=== PATIENT | female | born 1950 | race Caucasian/White ===

== ENCOUNTER 2016-06-05 14:30 | Inpatient (IN) | payer MEDICARE, OTHER ==
--- NOTE | 2016-06-05 14:57 | ER Document Report ---
ED Medical Screen (RME) - General Chief Complaint: Shortness Of Breath Stated Complaint: ABDOMINAL PAIN Time seen by provider: 14:54 Mode of Arrival: Ambulatory Information source: Patient Notes: 65 yo female present sto ed for abdominal pain with no BM for 2 weeks. told her is enama did not relieve the constipations to come to the hospital TRAVEL OUTSIDE OF THE [place] IN LAST 30 DAYS: No - HPI Onset: Other - 2 weeks Onset/Duration: Gradual, Worse Quality of pain: Sharp Pain Level: 4 Associated Symptoms: Abdominal pain, Shortness of breath Exacerbated by: Denies Relieved by: Denies Similar symptoms previously: Yes Recently seen / treated by doctor: Yes - Related Data Smoking: Cigarettes, Other - ppd Frequency of alcohol use: None Drug Abuse: None Allergies/Adverse Reactions: No Known Allergies Allergy (Verified 06/05/16 14:54) Past Medical History - Past Medical History Cardiac Medical History: Reports: Hx Coronary Artery Disease, Hx Heart Attack - 2009 stents placed Denies: Hx Hypertension Pulmonary Medical History: Reports: Hx COPD Denies: Hx Asthma, Hx Bronchitis, Hx Pneumonia Neurological Medical History: Denies: Hx Cerebrovascular Accident, Hx Seizures Musculoskeltal Medical History: Reports Hx Arthritis Past Surgical History: Reports: Hx Hysterectomy - Immunizations Hx Diphtheria, Pertussis, Tetanus Vaccination: Yes - Many years
--- NOTE | 2016-06-05 16:13 | ER Document Report ---
ED GI/ - General Chief Complaint: Abdominal Pain Stated Complaint: ABDOMINAL PAIN Mode of Arrival: Ambulatory Notes: The patient is a 65-year-old female, past medical history COPD, hypertension, presents with 2 weeks of constipation. She has not had a bowel movement since then. She saw her primary care physician and was told to begin MiraLAX and use a Fleet enema. If this did not work, she was instructed to go to the emergency room. She tried a Fleet enema without much success, but was afraid to try the MiraLAX. She is also having increasing shortness of breath over the past few weeks. He does not have home oxygen. She finished a Z-Mark for bronchitis 2 weeks ago. She denies abdominal pain, nausea, vomiting, urinary symptoms, chest pain, fevers or rash. TRAVEL OUTSIDE OF THE [place] IN LAST 30 DAYS: No - Related Data Allergies/Adverse Reactions: No Known Allergies Allergy (Verified 06/05/16 14:54) Past Medical History - General Information source: Patient - Social History Smoking Status: Current Every Day Smoker Chew tobacco use (# tins/day): No Frequency of alcohol use: None Drug Abuse: None Family History: Reviewed & Not Pertinent Patient has suicidal ideation: No Patient has homicidal ideation: No - Past Medical History Cardiac Medical History: Reports: Hx Coronary Artery Disease, Hx Heart Attack - 2009 stents placed Denies: Hx Hypertension Pulmonary Medical History: Reports: Hx COPD Denies: Hx Asthma, Hx Bronchitis, Hx Pneumonia Neurological Medical History: Denies: Hx Cerebrovascular Accident, Hx Seizures Musculoskeltal Medical History: Reports Hx Arthritis Past Surgical History: Reports: Hx Hysterectomy - Immunizations Hx Diphtheria, Pertussis, Tetanus Vaccination: Yes - Many years Review of Systems - Review of Systems Notes: REVIEW OF SYSTEMS: CONSTITUTIONAL: Denies fever, chills, or sweats. Denies recent illness. EENT: Denies eye, ear, throat, or mouth pain or symptoms. Denies nasal or sinus congestion. CARDIOVASCULAR: Denies chest pain, syncope. RESPIRATORY: Denies cough, cold, or chest congestion. Mild SOB. No wheezing. GASTROINTESTINAL: Denies abdominal pain. Denies nausea, vomiting, or diarrhea. +constipation. GENITOURINARY: Denies difficulty urinating, painful urination, burning, frequency, or blood in urine. MUSCULOSKELETAL: Denies neck or back pain or joint pain or swelling. SKIN: Denies rash or skin lesions. HEMATOLOGIC: Denies easy bruising or bleeding. LYMPHATIC: Denies swollen, enlarged glands. NEUROLOGICAL: Denies altered mental status or loss of consciousness. Denies headache. Denies weakness or paralysis or loss of use of either side. Denies problems with gait or speech. Denies sensory or motor loss. PSYCHIATRIC: Denies anxiety or stress or depression. ALL OTHER SYSTEMS REVIEWED AND NEGATIVE. Physical Exam - Vital signs Vitals: Temp Pulse Resp BP Pulse Ox 98.4 F 107 H 32 H 138/67 H 82 L 06/05/16 14:49 06/05/16 14:49 06/05/16 14:49 06/05/16 14:49 06/05/16 14:49 - Notes Notes: PHYSICAL EXAMINATION: GENERAL: Well-appearing, well-nourished and in no acute distress. HEAD: Atraumatic, normocephalic. EYES: Pupils equal round and reactive to light, extraocular movements intact, sclera anicteric, conjunctiva are normal. ENT: nares patent, oropharynx clear without exudates. Moist mucous membranes. NECK: Normal range of motion, supple without lymphadenopathy LUNGS: Breath sounds clear to auscultation bilaterally and equal. Mild tachypnea. HEART: Regular rate and rhythm without murmurs ABDOMEN: Soft, nontender, decreased bowel sounds. No guarding, no rebound. No masses appreciated. Hard stool in rectal vault. EXTREMITIES: Normal range of motion, no pitting or edema. No cyanosis. NEUROLOGICAL: Cranial nerves grossly intact. Normal speech, normal gait. Normal sensory, motor, and reflex exams. PSYCH: Normal mood, normal affect. SKIN: Warm, Dry, normal turgor, no rashes or lesions noted. Course - Re-evaluation Re-evalutation: Patient hypoxic on arrival. Very mild wheezing. She does not wear home oxygen. Oxygen increased to 93% on 3 L nasal cannula. No respiratory distress. Chest x -ray shows interstitial edema versus atypical pneumonia. Will treat with Lasix and CAP Abx. Blood cultures sent. Patient's abdominal exam is nontender. Does not appear to be peritoneal at this time. KUB does not show any signs of obstruction. Disimpaction attempted with a small amount of hard stool obtained. Will attempt Lactulose and soapsuds enema. After soapsuds enema and lactulose, patient had moderate bowel movement. Will continue bowel regimen. 06/05/16 20:[address] Kramer (Hospitalist) and has accepted patient to Tele as Obs. Repeat vitals is HR 97, Pulse Ox 94% on 3L, RR 23, BP 145/92 - Vital Signs Vital signs: Temp Pulse Resp BP Pulse Ox 98.4 F 95 32 H 142/67 H 88 L 06/05/16 14:49 06/05/16 18:24 06/05/16 14:49 06/05/16 18:24 06/05/16 18:24 - Laboratory Result Diagrams: 06/05/16 19:05 06/05/16 19:05 Laboratory results interpreted by me: 06/05/16 19:05 Potassium 3.5 L Carbon Dioxide 33 H - Diagnostic Test Radiology reviewed: Image reviewed, Reports reviewed Radiology results interpreted by me: KUB shows nonspecific bowel gas pattern. Chest x-ray shows atypical pneumonia versus interstitial edema. Discharge - Discharge Clinical Impression: Hypoxia, Atypical pneumonia Constipation Qualifiers: Constipation type: unspecified constipation type Qualified Code(s): K59.00 - Constipation, unspecified Interstitial edema Qualifiers: Edema type: generalized Qualified Code(s): R60.1 - Generalized edema Condition: Fair Disposition: ADMITTED OBSERVATION Unit Admitted: Telemetry Referrals: CLAUDIA PAYTON MD [Primary Care Provider] - Follow up as needed
[2016-06-05] MEDS ORDERED: LACTULOSE SYRUP 20 GM/30 ML UDCUP PO ONE (18:15)
[2016-06-05] MEDS ORDERED: IPRATROPIUM/ALBUTEROL 0.5-2.5 MG/3 ML AMPUL NEB ONE (18:33)
[2016-06-05] MEDS ORDERED: AZITHROMYCIN INJ 500 MG VIAL IV ONE ×2 (19:14→22:58)
[2016-06-05] MEDS ORDERED: CEFTRIAXONE INJ 500 MG VIAL IV ONE (19:14)
[2016-06-05] MEDS ORDERED: FUROSEMIDE INJ/PF 40 MG/4 ML SDV IV ONE (19:15)
[2016-06-05 19:30] LABS: ABSOLUTE EOSINOPHILS # (AUTO) 0.1 10^3/uL (0.0-0.6); ABSOLUTE LYMPHOCYTES (AUTO) 1.4 10^3/uL (0.5-4.7); ABSOLUTE NEUT (AUTO) 7.3 10^3/uL (1.7-8.2); BASOPHILS % (AUTO) 0.2 % (0-2); EOSINOPHILS % (AUTO) 1.2 % (0-6); HEMATOCRIT 41.5 % (36.0-47.0); HEMOGLOBIN 13.5 g/dL (12.0-15.5); LYMPHOCYTES % (AUTO) 14.2 % (13-45); MEAN CORPUSCULAR HGB CONC 32.5 g/dL (32.0-36.0); MEAN CORPUSCULAR VOLUME 95 fl (80-97); MONOCYTES % (AUTO) 9.9 % (3-13); RED BLOOD COUNT 4.35 10^6/uL (3.72-5.28); RED CELL DISTRIBUTION WIDTH 13.8 % (11.5-14.0); SEGMENTED NEUTROPHILS % (AUTO) 74.5 % (42-78); WHITE BLOOD COUNT 9.8 10^3/uL (4.0-10.5)
[2016-06-05 19:48] LABS: ANION GAP 12 (5-19); BLOOD UREA NITROGEN 12 mg/dL (7-20); CALCIUM 8.6 mg/dL (8.4-10.2); CARBON DIOXIDE 33 mmol/L (22-30); CHLORIDE 99 mmol/L (98-107); CREATININE RESULT 0.53 mg/dL (0.52-1.25); GLUCOSE 88 mg/dL (75-110); POTASSIUM 3.5 mmol/L (3.6-5.0); SODIUM 143.7 mmol/L (137-145)
[2016-06-05] MEDS ORDERED: ONDANSETRON HCL INJ/PF 4 MG/2 ML SDV IV PRN (20:21)
[2016-06-05] MEDS ORDERED: ACETAMINOPHEN 325 MG TABLET PO PRN (20:21)
[2016-06-05] MEDS ORDERED: NORMAL SALINE 1000 ML 1,000 ML IV ONE (20:26)
[2016-06-05] MEDS ORDERED: POTASSI CL 20 MEQ/50 ML RIDER 50 ML IV SCH (20:30)
[2016-06-05] MEDS ORDERED: DILTIAZEM HCL 60 MG TABLET PO ONE (21:00)
[2016-06-05] MEDS ORDERED: MAGNESIUM OXIDE 400 MG TABLET PO ONE (21:00)
[2016-06-05] MEDS: HEPARIN SOD (PORCINE) 5,000 UNIT/ML 1 ML SYRINGE SUBCUT SCH (23:12)
[2016-06-06] MEDS ORDERED: POTASSI CL 20 MEQ/50 ML RIDER 20 MEQ/50 ML RTUPB IV ONE (01:30)
--- NOTE | 2016-06-06 04:39 | PDOC H&P ---
History of Present Illness Admission Date/PCP: 06/05/16 20:21 CLAUDIA PAYTON MD Patient complains of: Abdominal pain and distention constipation 2 weeks History of Present Illness: ROBBY GEE is a 65 year old female with a past medical history of COPD tobacco dependence obesity chronic pain opiate dependence and hypertension. In her usual state of health until approximately week ago having exceptional abdominal pain without bowel movement developing distention nausea without vomiting prompts her to seek evaluation emergency room where she's found to have exceptional constipation and shortness of breath she receives several enemas without improvement her oxygen saturations are 87% on room air and is referred to the hospitalist for admission. She admits chronic use of Percocet without bowel regiment. Otherwise no new medications denying chest pain palpitations or diaphoresis. Past Medical History Cardiac Medical History: Reports: Coronary Artery Disease, Myocardial Infarction - 2009 stents placed Denies: Hypertension Pulmonary Medical History: Reports: Chronic Obstructive Pulmonary Disease (COPD) Denies: Asthma, Bronchitis, Pneumonia Neurological Medical History: Denies: Seizures Musculoskeltal Medical History: Reports: Arthritis Hematology: Denies: Anemia Past Surgical History Past Surgical History: Reports: Hysterectomy Social History Information Source: Parent Lives with: Family Smoking Status: Current Every Day Smoker Frequency of Alcohol Use: None Hx Recreational Drug Use: No Drugs: None - Advance Directive Resuscitation Status: Full Code Family History Family History: COPD Parental Family History Reviewed: Yes Children Family History Reviewed: Yes Sibling(s) Family History Reviewed.: Yes Medication/Allergy Home Medications: Albuterol Sulfate [Proair HFA] 1 puff IH DAILY 06/05/16 Esomeprazole Magnesium 1 cap PO DAILY 06/05/16 Guaifenesin [Tussin] 1 tab PO PRN PRN 06/05/16 Methimazole 1 tab PO DAILY 06/05/16 Nitrofurantoin Monohyd/M-Cryst [Nitrofurantoin [place]-Mcr 100 mg] 1 cap PO BID 11/14 Tiotropium [place] [Spiriva Handihaler 18 mcg/dose (30 Dose)] 1 puff IH DAILY Trazodone HCl 1 tab PO DAILY PRN 06/05/16 Allergies/Adverse Reactions: No Known Allergies Allergy (Verified 06/05/16 14:54) Review of Systems Constitutional: PRESENT: fatigue, weakness, weight gain. ABSENT: anorexia, chills Eyes: ABSENT: visual disturbances Ears: ABSENT: hearing changes Cardiovascular: ABSENT: chest pain, dyspnea on exertion, edema, orthropnea, palpitations Respiratory: PRESENT: dyspnea. ABSENT: cough, hemoptysis, sputum Gastrointestinal: PRESENT: abdominal pain, bloating, constipation, nausea. ABSENT: diarrhea, dysphagia, heartburn, hematemesis, hematochezia Genitourinary: ABSENT: dysuria, hematuria Musculoskeletal: ABSENT: joint swelling Integumentary: ABSENT: rash, wounds Neurological: ABSENT: abnormal gait, abnormal speech, confusion, dizziness, focal weakness, syncope Psychiatric: ABSENT: anxiety, depression, homidical ideation, suicidal ideation Endocrine: ABSENT: cold intolerance, heat intolerance, polydipsia, polyuria Hematologic/Lymphatic: ABSENT: easy bleeding, easy bruising Physical Exam Vital Signs: Temp Pulse Resp BP Pulse Ox 98.3 F 92 24 H 107/77 95 06/06/16 00:30 06/06/16 02:00 06/06/16 00:30 06/06/16 00:30 06/06/16 00:30 Intake & Output 06/04/16 06/05/16 06/06/16 11:59 11:59 11:59 Weight 91 kg General appearance: PRESENT: cooperative, mild distress, well-developed, well- nourished Head exam: PRESENT: atraumatic, normocephalic Eye exam: PRESENT: conjunctiva pink, EOMI, PERRLA. ABSENT: scleral icterus Ear exam: PRESENT: normal external ear exam Mouth exam: PRESENT: moist, tongue midline Neck exam: ABSENT: carotid bruit, JVD, lymphadenopathy, thyromegaly Respiratory exam: PRESENT: accessory muscle use, prolonged expiratory phas, symmetrical, tachypnea. ABSENT: rales, rhonchi, wheezes Cardiovascular exam: PRESENT: RRR. ABSENT: diastolic murmur, rubs, systolic murmur Pulses: PRESENT: normal dorsalis pedis pul Vascular exam: PRESENT: normal capillary refill GI/Abdominal exam: PRESENT: diminished bowel sounds, distended, firm, hypoactive bowel sounds, soft. ABSENT: guarding, mass, organolmegaly, rebound, tenderness Rectal exam: PRESENT: deferred Extremities exam: PRESENT: full ROM. ABSENT: calf tenderness, clubbing, pedal edema Neurological exam: PRESENT: alert, awake, oriented to person, oriented to place , oriented to time, oriented to situation, CN II-XII grossly intact. ABSENT: motor sensory deficit Psychiatric exam: PRESENT: appropriate affect, normal mood. ABSENT: homicidal ideation, suicidal ideation Skin exam: PRESENT: dry, intact, warm. ABSENT: cyanosis, rash Results Impressions: KUB X-Ray 06/05/16 17:43 IMPRESSION: NON-SPECIFIC BOWEL GAS PATTERN. Chest X-Ray 06/05/16 18:25 IMPRESSION: Peribronchial cuffing and interstitial changes. Trace bilateral effusions. Differential includes atypical infectious process versus early interstitial edema. Assessment & Plan - Diagnosis (1) COPD exacerbation Is this a current diagnosis for this admission?: YesPlan: Exacerbation likely secondary to exceptional constipation she receives incentive spirometry symptomatic management repeat labs consider repeat imaging (2) Tobacco abuse Is this a current diagnosis for this admission?: YesPlan: Tobacco Dependence patient received tobacco cessation counseling and offered nicotine replacement options (3) Chronic pain Is this a current diagnosis for this admission?: YesPlan: Opiate dependence without bowel regiment she is placed on Colace (4) Constipation Qualifiers: Constipation type: unspecified constipation type Qualified Code(s): K59.00 - Constipation, unspecified Is this a current diagnosis for this admission?: YesPlan: Unresponsive to medical enema she is placed on lactulose enema and manual disimpaction - Time Time Spent: 30 to 50 Minutes
[2016-06-06] MEDS ORDERED: LACTULOSE SYRUP 20 GM/30 ML UDCUP PR ONE (05:15)
[2016-06-06 05:41] LABS: ABSOLUTE EOSINOPHILS # (AUTO) 0.1 10^3/uL (0.0-0.6); ABSOLUTE LYMPHOCYTES (AUTO) 1.3 10^3/uL (0.5-4.7); ABSOLUTE MONOCYTES (AUTO) 0.9 10^3/uL (0.1-1.4); ABSOLUTE NEUT (AUTO) 6.2 10^3/uL (1.7-8.2); BASOPHILS % (AUTO) 0.4 % (0-2); EOSINOPHILS % (AUTO) 1.2 % (0-6); HEMATOCRIT 41.4 % (36.0-47.0); HEMOGLOBIN 13.4 g/dL (12.0-15.5); HGB HCT DIFFERENCE -1.2; LYMPHOCYTES % (AUTO) 14.8 % (13-45); MEAN CORPUSCULAR HEMOGLOBIN 30.7 pg (27.0-33.4); MEAN CORPUSCULAR HGB CONC 32.3 g/dL (32.0-36.0); MEAN CORPUSCULAR VOLUME 95 fl (80-97); MONOCYTES % (AUTO) 10.8 % (3-13); RED BLOOD COUNT 4.35 10^6/uL (3.72-5.28); RED CELL DISTRIBUTION WIDTH 13.9 % (11.5-14.0); SEGMENTED NEUTROPHILS % (AUTO) 72.8 % (42-78); WHITE BLOOD COUNT 8.5 10^3/uL (4.0-10.5)
[2016-06-06 05:54] LABS: ANION GAP 9 (5-19); BLOOD UREA NITROGEN 9 mg/dL (7-20); CALCIUM 8.3 mg/dL (8.4-10.2); CARBON DIOXIDE 35 mmol/L (22-30); CHLORIDE 99 mmol/L (98-107); CREATININE RESULT 0.47 mg/dL (0.52-1.25); GLUCOSE 93 mg/dL (75-110); POTASSIUM 3.6 mmol/L (3.6-5.0); SODIUM 142.6 mmol/L (137-145)
[2016-06-06] MEDS ORDERED: LACTULOSE SYRUP 20 GM/30 ML UDCUP ONE (06:33)
[2016-06-06] MEDS: HEPARIN SOD (PORCINE) 5,000 UNIT/ML 1 ML SYRINGE SUBCUT SCH ×3 (06:34→21:19)
[2016-06-06] MEDS: POTASSI CL 20 MEQ/50 ML RIDER 50 ML IV SCH ×2 (06:35→09:21)
[2016-06-06] MEDS: IPRATROPIUM/ALBUTEROL 0.5-2.5 MG/3 ML AMPUL NEB SCH ×3 (07:28→20:08)
[2016-06-06] MEDS: DOCUSATE SODIUM 100 MG CAPSULE PO SCH ×2 (09:20→17:12)
[2016-06-06] MEDS ORDERED: TRAZODONE HCL 50 MG TABLET PO PRN (13:58)
[2016-06-06] MEDS ORDERED: GUAIFENESIN PO PRN (13:58)
--- NOTE | 2016-06-06 14:17 | PDOC PROGRESS REPORT ---
Subjective Progress Note for:: 06/06/16 Subjective:: Patient is seen on morning rounds. She is resting quietly in bed. She awakens to verbal stimuli. She has a congested cough. She denies dyspnea or significant shortness of breath. She denies dizziness, headache or fevers. She denies nausea , vomiting or diarrhea. She states her bowels did move after last enema Physical Exam Vital Signs: Temp Pulse Resp BP Pulse Ox 98.0 F 95 20 125/48 L 99 06/06/16 11:49 06/06/16 11:49 06/06/16 11:49 06/06/16 11:49 06/06/16 11:49 Intake & Output 06/05/16 06/06/16 06/07/16 06:59 06:59 06:59 Intake Total 579 Balance 579 Weight 91 kg General appearance: PRESENT: no acute distress, morbidly obese, well-developed, well-nourished Head exam: PRESENT: atraumatic, normocephalic Eye exam: PRESENT: conjunctiva pink, EOMI, PERRLA. ABSENT: scleral icterus Ear exam: PRESENT: normal external ear exam Neck exam: ABSENT: carotid bruit, JVD, lymphadenopathy, thyromegaly Respiratory exam: PRESENT: clear to auscultation andrei. ABSENT: rales, rhonchi, wheezes Cardiovascular exam: PRESENT: RRR. ABSENT: diastolic murmur, rubs, systolic murmur Pulses: PRESENT: normal dorsalis pedis pul Vascular exam: PRESENT: normal capillary refill GI/Abdominal exam: PRESENT: normal bowel sounds, soft. ABSENT: distended, guarding, mass, organolmegaly, rebound, tenderness Rectal exam: PRESENT: deferred Extremities exam: PRESENT: full ROM. ABSENT: calf tenderness, clubbing, pedal edema Neurological exam: PRESENT: alert, awake, oriented to person, oriented to place , oriented to time, oriented to situation, CN II-XII grossly intact. ABSENT: motor sensory deficit Psychiatric exam: PRESENT: agitated Skin exam: PRESENT: dry, intact, warm. ABSENT: cyanosis, rash Results Laboratory Results: 06/06/16 05:27 06/06/16 05:27 06/06/16 06/06/16 06/06/16 05:27 05:27 05:27 WBC 8.5 RBC 4.35 Hgb 13.4 Hct 41.4 MCV 95 MCH 30.7 MCHC 32.3 RDW 13.9 Plt Count 193 Seg Neutrophils % 72.8 Lymphocytes % 14.8 Monocytes % 10.8 Eosinophils % 1.2 Basophils % 0.4 Absolute Neutrophils 6.2 Absolute Lymphocytes 1.3 Absolute Monocytes 0.9 Absolute Eosinophils 0.1 Absolute Basophils 0.0 Sodium 142.6 Potassium 3.6 Chloride 99 Carbon Dioxide 35 H Anion Gap 9 BUN 9 Creatinine 0.47 L Est GFR ( Amer) > 60 Est GFR (Non-Af Amer) > 60 Glucose 93 Calcium 8.3 L Magnesium 1.8 Impressions: KUB X-Ray 06/05/16 17:43 IMPRESSION: NON-SPECIFIC BOWEL GAS PATTERN. Chest X-Ray 06/05/16 18:25 IMPRESSION: Peribronchial cuffing and interstitial changes. Trace bilateral effusions. Differential includes atypical infectious process versus early interstitial edema. Assessment & Plan - Diagnosis (1) Atypical pneumonia Is this a current diagnosis for this admission?: YesPlan: Continue antibiotics as, cultures pending (2) COPD exacerbation Is this a current diagnosis for this admission?: YesPlan: Steroids, antibiotics and nebulizers (3) Constipation Qualifiers: Constipation type: unspecified constipation type Qualified Code(s): K59.00 - Constipation, unspecified Is this a current diagnosis for this admission?: YesPlan: Enemas, and laxatives (5) Tobacco abuse Is this a current diagnosis for this admission?: YesPlan: Room air spo2 in the ED was 84%, on 3l/min n/c (6) Morbid obesity Qualifiers: Obesity type: due to excess calories Qualified Code(s): E66.01 - Morbid (severe) obesity due to excess calories Is this a current diagnosis for this admission?: YesPlan: Counseled - Time Time Spent with patient: 25-34 minutes Critical Time spent with patient: 15-24 minutes Smoking Cessation Education: 3 to 10 minutes Medications reviewed and adjusted accordingly: Yes Anticipated discharge: Home
[2016-06-06] MEDS: METHYLPREDNISOLONE INJ 125 MG/2 ML SDV IV SCH ×2 (14:23→21:19)
[2016-06-07] MEDS: HEPARIN SOD (PORCINE) 5,000 UNIT/ML 1 ML SYRINGE SUBCUT SCH ×3 (05:15→21:48)
[2016-06-07] MEDS: METHYLPREDNISOLONE INJ 125 MG/2 ML SDV IV SCH ×3 (05:15→21:48)
[2016-06-07] MEDS: IPRATROPIUM/ALBUTEROL 0.5-2.5 MG/3 ML AMPUL NEB SCH ×3 (08:24→19:46)
[2016-06-07] MEDS: METHIMAZOLE 5 MG TABLET PO SCH (09:30)
[2016-06-07] MEDS: DOCUSATE SODIUM 100 MG CAPSULE PO SCH ×2 (09:30→20:07)
[2016-06-07] MEDS: TIOTROPIUM BROMIDE DPI 5 CAP/KIT (18 MCG/CAP) IH SCH (09:30)
[2016-06-07] MEDS ORDERED: METHIMAZOLE 5 MG TABLET PO SCH (10:00)
[2016-06-07] MEDS ORDERED: TIOTROPIUM BROMIDE DPI 5 CAP/KIT (18 MCG/CAP) IH SCH (10:00)
[2016-06-07] MEDS ORDERED: PEG 3350/NA SULF,BICARB,CL/KCL 4000 ML PO ONE (13:00)
--- NOTE | 2016-06-07 16:53 | PDOC PROGRESS REPORT ---
Subjective Progress Note for:: 06/07/16 Subjective:: Patient is seen on morning rounds. She is resting quietly in bed. She awakens to verbal stimuli. She has a congested cough. She denies dyspnea or significant shortness of breath. She denies dizziness, headache or fevers. She denies nausea , vomiting or diarrhea. She states her bowels did move after last enema, but only a small amount. She still feels constipated Physical Exam Vital Signs: Temp Pulse Resp BP Pulse Ox 97.5 F 93 20 126/49 H 90 L 06/07/16 07:48 06/07/16 08:26 06/07/16 08:26 06/07/16 07:48 06/07/16 08:26 Intake & Output 06/06/16 06/07/16 06/08/16 06:59 06:59 06:59 Intake Total 1561 Balance 1561 Weight 89.9 kg General appearance: PRESENT: no acute distress, morbidly obese, well-developed, well-nourished Head exam: PRESENT: atraumatic, normocephalic Eye exam: PRESENT: conjunctiva pink, EOMI, PERRLA. ABSENT: scleral icterus Ear exam: PRESENT: normal external ear exam Mouth exam: PRESENT: moist, tongue midline Neck exam: ABSENT: carotid bruit, JVD, lymphadenopathy, thyromegaly Respiratory exam: PRESENT: decreased breath sounds, symmetrical, unlabored, wheezes Cardiovascular exam: PRESENT: RRR. ABSENT: diastolic murmur, rubs, systolic murmur Pulses: PRESENT: normal dorsalis pedis pul Vascular exam: PRESENT: normal capillary refill GI/Abdominal exam: PRESENT: hypoactive bowel sounds, normal bowel sounds, soft. ABSENT: distended, guarding, mass, organolmegaly, rebound, tenderness Rectal exam: PRESENT: deferred Extremities exam: PRESENT: full ROM. ABSENT: calf tenderness, clubbing, pedal edema Neurological exam: PRESENT: alert, awake, oriented to person, oriented to place , oriented to time, oriented to situation, CN II-XII grossly intact. ABSENT: motor sensory deficit Psychiatric exam: PRESENT: appropriate affect, normal mood. ABSENT: homicidal ideation, suicidal ideation Skin exam: PRESENT: dry, intact, warm. ABSENT: cyanosis, rash Results Impressions: KUB X-Ray 06/05/16 17:43 IMPRESSION: NON-SPECIFIC BOWEL GAS PATTERN. Chest X-Ray 06/05/16 18:25 IMPRESSION: Peribronchial cuffing and interstitial changes. Trace bilateral effusions. Differential includes atypical infectious process versus early interstitial edema. Assessment & Plan - Diagnosis (1) Atypical pneumonia Is this a current diagnosis for this admission?: YesPlan: Continue antibiotics as, cultures pending (2) COPD exacerbation Is this a current diagnosis for this admission?: YesPlan: Steroids, antibiotics and nebulizers (3) Constipation Qualifiers: Constipation type: unspecified constipation type Qualified Code(s): K59.00 - Constipation, unspecified Is this a current diagnosis for this admission?: YesPlan: Enemas, and laxatives (4) Hypoxia Is this a current diagnosis for this admission?: YesPlan: Continue oxygen and nebulizers. Wean steroids (5) Tobacco abuse Is this a current diagnosis for this admission?: YesPlan: Room air spo2 in the ED was 84%, on 3l/min n/c (6) Morbid obesity Qualifiers: Obesity type: due to excess calories Qualified Code(s): E66.01 - Morbid (severe) obesity due to excess calories Is this a current diagnosis for this admission?: YesPlan: Counseled - Time Time Spent with patient: 25-34 minutes Medications reviewed and adjusted accordingly: Yes Anticipated discharge: Home
[2016-06-08 06:14] LABS: ANION GAP 9 (5-19); BLOOD UREA NITROGEN 13 mg/dL (7-20); CALCIUM 8.6 mg/dL (8.4-10.2); CARBON DIOXIDE 38 mmol/L (22-30); CHLORIDE 97 mmol/L (98-107); CREATININE RESULT 0.44 mg/dL (0.52-1.25); GLUCOSE 137 mg/dL (75-110); POTASSIUM 4.2 mmol/L (3.6-5.0); SODIUM 143.5 mmol/L (137-145)
[2016-06-08] MEDS: METHYLPREDNISOLONE INJ 125 MG/2 ML SDV IV SCH (06:14)
[2016-06-08] MEDS: HEPARIN SOD (PORCINE) 5,000 UNIT/ML 1 ML SYRINGE SUBCUT SCH ×2 (06:14→15:37)
[2016-06-08] MEDS: IPRATROPIUM/ALBUTEROL 0.5-2.5 MG/3 ML AMPUL NEB SCH ×2 (08:07→13:14)
[2016-06-08] MEDS ORDERED: POLYETHYLENE GLYCOL 3350 POWDER 17 GM/1 PACKET PO SCH (10:00)
[2016-06-08] MEDS: METHIMAZOLE 5 MG TABLET PO SCH (10:08)
[2016-06-08] MEDS ORDERED: GUAIFENESIN SYRP 200 MG/10 ML UDC PO PRN (11:31)
[2016-06-08] MEDS: TIOTROPIUM BROMIDE DPI 5 CAP/KIT (18 MCG/CAP) IH SCH (13:06)
[2016-06-08] MEDS: DOCUSATE SODIUM 100 MG CAPSULE PO SCH (13:09)
--- NOTE | 2016-06-08 15:27 | PDOC DISCHARGE SUMMARY ---
General - Admit/Disc Date/PCP Admission Date/Primary Care Provider: 06/06/16 13:57 CLAUDIA PAYTON MD Discharge Date: 06/08/16 - Discharge Diagnosis (1) Atypical pneumonia Is this a current diagnosis for this admission?: YesSummary: Continue levaquin for 5 more days with tapering prednisone (2) COPD exacerbation Is this a current diagnosis for this admission?: YesSummary: Continue spiriva and nebulizer treatments (3) Constipation Is this a current diagnosis for this admission?: YesSummary: Patient had enemas, mag citrate and Golytely. Recommended Miralax and Colace daily (4) Hypoxia Is this a current diagnosis for this admission?: YesSummary: Improved counseled on need to quit smoking (5) Tobacco abuse Is this a current diagnosis for this admission?: YesSummary: Counseled is attempting to quit (6) Morbid obesity Is this a current diagnosis for this admission?: YesSummary: Counseled - Additional Information Resuscitation Status: Full Code Discharge Diet: Regular Discharge Activity: Activity As Tolerated, Balance Activity w/Rest Home Medications: Albuterol Sulfate [Proair HFA] 1 puff IH DAILY 06/05/16 Esomeprazole Magnesium 1 cap PO DAILY 06/05/16 Guaifenesin [Tussin] 1 tab PO PRN PRN 06/05/16 Methimazole 1 tab PO DAILY 06/05/16 Tiotropium [place] [Spiriva Handihaler 18 mcg/dose (30 Dose)] 1 puff IH DAILY Trazodone HCl 1 tab PO DAILY PRN 06/05/16 Acetaminophen [Tylenol 325 mg Tablet] 650 mg PO Q4HP PRN tablet 06/08/16 Ciprofloxacin HCl [Ciloxan 0.3% Oph Soln 2.5 ml] 1 drop OU Q6 #5 ml 06/08/16 Guaifenesin [Robitussin Syrup 200 mg/10 ml Ud Cup] 400 mg PO Q4HP PRN udc 06/08 Levofloxacin [Levaquin 750 mg Tablet] 750 mg PO DAILY #5 tablet 06/08/16 Polyethylene Glycol 3350 [Miralax Powder 17 gm/Packet] 17 gm PO DAILY powd.pack 06/08/16 Prednisone [Deltasone 20 mg Tablet] 20 mg PO ASDIR PRN #10 tablet 06/08/16 History of Present Illness Patient complains of: Shortness of breath, cough, abdominal pain and constipation History of Present Illness: ROBBY GEE is a 65 year old female presented on 06/05/2016 with above complaints. She states she has tried several otc laxatives with very little results and has been constipated for 2 weeks. She has had an upper respiratory infection for the last 2 days. She does have a history of COPD and tobacco abuse. She continues to smoke. Her room air SPO2 was 82% on admission. She was placed on oxygen and given broad spectrum antibiotics and referred to the hospitalist service. Hospital Course Hospital Course: She was admitted to telemetry on the hospitalist service. KUB xrays showed no obstruction. She was started on IV broad spectrum antibiotics, IV steroids and nebulizer treatments. Her pulmonary status improved. She developed some redness today in her right and purulent discharge. She was started on antibacterial drops. She had large bowel movement after Golytely Physical Exam Vital Signs: Temp Pulse Resp BP Pulse Ox 98.0 F 107 H 16 118/58 L 91 L 06/08/16 12:20 06/08/16 14:00 06/08/16 13:13 06/08/16 12:20 06/08/16 13:13 Intake & Output 06/07/16 06/08/16 06/09/16 06:59 06:59 06:59 Intake Total 1561 1693 Balance 1561 1693 Weight 89.9 kg 88.3 kg General appearance: PRESENT: no acute distress, obese, well-developed, well- nourished Head exam: PRESENT: atraumatic, normocephalic Eye exam: PRESENT: conjunctiva pink, EOMI, PERRLA. ABSENT: scleral icterus Ear exam: PRESENT: normal external ear exam Mouth exam: PRESENT: moist, tongue midline Neck exam: ABSENT: carotid bruit, JVD, lymphadenopathy, thyromegaly Respiratory exam: PRESENT: clear to auscultation andrei, decreased breath sounds, symmetrical, unlabored Cardiovascular exam: PRESENT: RRR. ABSENT: diastolic murmur, rubs, systolic murmur Pulses: PRESENT: normal dorsalis pedis pul Vascular exam: PRESENT: normal capillary refill GI/Abdominal exam: PRESENT: normal bowel sounds, soft Rectal exam: PRESENT: deferred Extremities exam: PRESENT: full ROM. ABSENT: calf tenderness, clubbing, pedal edema Neurological exam: PRESENT: alert, awake, oriented to person, oriented to place , oriented to time, oriented to situation, CN II-XII grossly intact. ABSENT: motor sensory deficit Psychiatric exam: PRESENT: appropriate affect, normal mood. ABSENT: homicidal ideation, suicidal ideation Skin exam: PRESENT: dry, intact, warm. ABSENT: cyanosis, rash Results Laboratory Results: 06/08/16 05:46 06/08/16 05:46 Sodium 143.5 Potassium 4.2 Chloride 97 L Carbon Dioxide 38 H Anion Gap 9 BUN 13 Creatinine 0.44 L Est GFR ( Amer) > 60 Est GFR (Non-Af Amer) > 60 Glucose 137 H Calcium 8.6 Impressions: Chest X-Ray 06/05/16 18:25 IMPRESSION: Peribronchial cuffing and interstitial changes. Trace bilateral effusions. Differential includes atypical infectious process versus early interstitial edema. KUB X-Ray 06/08/16 00:00 IMPRESSION: NO RADIOGRAPHIC EVIDENCE FOR ACUTE ABDOMINAL DISEASE. Qualifiers PATEINT BEING DISCHARGED WITH ANY OF THE FOLLOWING DIAGNOSIS?: No Plan Discharge Plan: Home with family. Follow up with primary care provider in one week
[2016-06-08 16:29] VITALS: BP 121/62
[2016-06-08] MEDS ORDERED: PREDNISONE 20 MG TABLET PO SCH (18:00)
[2016-06-08] MEDS ORDERED: CIPROFLOXACIN HCL 0.3% OPH SOLN 2.5 ML OU SCH (18:00)
[2016-06-09] MEDS ORDERED: LEVOFLOXACIN 750 MG TABLET PO SCH (10:00)
== END 2016-06-08 17:37 | disposition home or self-care (01) | DRG 190 ==
LOC: ER 14:30 → EH 20:21 → UNDOADMOB 20:31 → EH 20:31 → 4S 06-06 00:24 → OBSVTOIN 06-06 13:57
PROVIDERS: ADMIT Internal Medicine; ATTEND Internal Medicine
DX: J44.0 Chronic obstructive pulmonary disease with (acute) lower respiratory infection (principal); J18.1 Lobar pneumonia, unspecified organism; F11.20 Opioid dependence, uncomplicated; J44.1 Chronic obstructive pulmonary disease with (acute) exacerbation; K59.00 Constipation, unspecified; I25.10 Atherosclerotic heart disease of native coronary artery without angina pectoris; R09.02 Hypoxemia; I10 Essential (primary) hypertension; M19.90 Unspecified osteoarthritis, unspecified site; F17.210 Nicotine dependence, cigarettes, uncomplicated; E66.01 Morbid (severe) obesity due to excess calories; Z68.39 Body mass index [BMI] 39.0-39.9, adult; I25.2 Old myocardial infarction; Z95.5 Presence of coronary angioplasty implant and graft
CPT/HCPCS: 36415; 71020; 74000; 80048; 83605; 83735; 83880; 85025; 87040; 94640; 99285; G0378; J0456; J0696; J1644; J1940; J2930; J3480; J3490; J7030; J7620

== ENCOUNTER 2016-07-07 16:08 | Emergency (ER) | payer MEDICARE, OTHER ==
--- NOTE | 2016-07-07 16:25 | ER Document Report ---
ED Medical Screen (RME) - General Stated Complaint: LEG PAIN Mode of Arrival: Ambulatory Information source: Patient Notes: Patient had an out patient ultrasound performed which demonstrated a DVT in the right lower extremity. Patient was advised to come to the emergency department for further evaluation. Patient denies any chest pain or shortness of breath. Patient reports right lower extremity swelling for the past week. Patient denies any previous history of DVT or PE in the past. Patient tachycardic and oxygen saturation is 88-89% on room air hx: COPD, [place] 2 I have greeted and performed a rapid initial assessment of this patient. A comprehensive ED assessment and evaluation of the patient, analysis of test results and completion of the medical decision making process will be conducted by additional ED providers. TRAVEL OUTSIDE OF THE [place] IN LAST 30 DAYS: No - Related Data Allergies/Adverse Reactions: No Known Allergies Allergy (Verified 06/05/16 14:54) Past Medical History - Past Medical History Cardiac Medical History: Reports: Hx Coronary Artery Disease, Hx Heart Attack - 2009 stents placed Denies: Hx Hypertension Pulmonary Medical History: Reports: Hx COPD Denies: Hx Asthma, Hx Bronchitis, Hx Pneumonia Neurological Medical History: Denies: Hx Cerebrovascular Accident, Hx Seizures Musculoskeltal Medical History: Reports Hx Arthritis Past Surgical History: Reports: Hx Hysterectomy - Immunizations Hx Diphtheria, Pertussis, Tetanus Vaccination: Yes - Many years Physical Exam - Cardiovascular Rhythm: Tachycardia Heart sounds: S1 appreciated, S2 appreciated
--- NOTE | 2016-07-07 18:40 | ER Document Report ---
ED Extremity Problem, Lower - General Mode of Arrival: Ambulatory Information source: Patient TRAVEL OUTSIDE OF THE [place] IN LAST 30 DAYS: No - HPI Patient complains to provider of: Swelling Location: Leg - right Occurred: Other - 1 week ago Associated symptoms: Other - see above - General Chief Complaint: Leg Pain Stated Complaint: LEG PAIN Notes: 65-year-old female with no history of past DVTs, irregular heart beat, or any risk of bleeding presents to the ED complaining of right leg swelling that has been present for the past week. Patient states that she has not injured or been on any long car or plane rides recently. She denies any hormone replacement therapy or surgery. Patient states that she was in the hospital in May 2016 for 3 days secondary to the urinary retention and right side pain. Patient denies any chest pain or shortness of breath. Patient states that she does take Percocet as needed for chronic back pain, but is not taking it for the swelling. Patient states that she was on Plavix when she had an UT. Patient's primary care provider is Dr. Harris. (DANY SOLORIO) - Related Data Allergies/Adverse Reactions: No Known Allergies Allergy (Verified 06/05/16 14:54) Past Medical History - General Information source: Patient - Social History Smoking Status: Unknown if Ever Smoked Family History: COPD Patient has suicidal ideation: No Patient has homicidal ideation: No - Past Medical History Cardiac Medical History: Reports: Hx Coronary Artery Disease, Hx Heart Attack - 2010 stents placed Denies: Hx Atrial Fibrillation, Hx DVT Pulmonary Medical History: Reports: Hx COPD Renal/ Medical History: Denies: Hx Peritoneal Dialysis Musculoskeltal Medical History: Reports Hx Arthritis Past Surgical History: Reports: Hx Hysterectomy - Immunizations Hx Diphtheria, Pertussis, Tetanus Vaccination: Yes - Many years Review of Systems - Review of Systems Constitutional: No symptoms reported EENT: No symptoms reported Cardiovascular: No symptoms reported Respiratory: No symptoms reported Gastrointestinal: No symptoms reported Genitourinary: No symptoms reported Female Genitourinary: No symptoms reported Musculoskeletal: See HPI, Leg swelling - right Skin: No symptoms reported Hematologic/Lymphatic: No symptoms reported Neurological/Psychological: No symptoms reported Physical Exam - General General appearance: Alert In distress: None - HEENT Head: Normocephalic, Atraumatic Eyes: Normal Extraocular movements intact: Yes Pupils: PERRL - Respiratory Respiratory status: No respiratory distress Breath sounds: Normal - Cardiovascular Rhythm: Regular Heart sounds: Normal auscultation Pulses: Normal: Posterior tibial, Dorsalis pedis Normal capillary refill: Yes - Abdominal Inspection: Normal - Back Back: Normal - Extremities General upper extremity: Normal inspection, Normal ROM General lower extremity: Edema - Non-pitting edema to the right lower extremity. , Normal ROM. No: Normal inspection, Julia's sign Calf: Nontender - Neurological Neuro grossly intact: Yes Cognition: Normal Orientation: AAOx4 [place] Coma Scale Eye Opening: Spontaneous Jonathan Coma Scale Verbal: Oriented Jonathan Coma Scale Motor: Obeys Commands Jonathan Coma Scale Total: 15 Speech: Normal - Psychological Associated symptoms: Normal affect, Normal mood - Skin Skin Temperature: Warm Skin Moisture: Dry Skin Color: Normal Skin Turgor: Tight Course - Re-evaluation Re-evalutation: 07/07/16 18:47 I personally performed the services described in the documentation, reviewed and edited the documentation which was dictated to my scribe in my presence, and it accurately records my words and actions. Ashlee presents to the emergency department with a one-week history of right lower extremity swelling. She had an outpatient ultrasound performed which was positive for DVT. They told her to come to the emergency department. She denies any history of recent travel surgery mobilization DVT or pulmonary emboli she has no chest pain shortness of breath history of PE. No prolonged immobilization fracture or travel. She has been on blood thinner in the form of Plavix in the past without any difficulty went over all the risks of starting her on Zoloft toe including giving him the risk and benefit of 0 toe versus Coumadin and Lovenox she chose to be started on Demerol toe. She does not need a PT/INR because the PT/INR doesn't affect her Zofran toe management. Hence started on Cymbalta she's have A primary care physician one to 2 days no acute clinical concerns for PE discussed one to 2 day follow-up and reasons for ED return sooner (J CARLOS WHYTE) - Laboratory Laboratory results interpreted by me: 07/07/16 18:05 Urine Ascorbic Acid 20 H Discharge - Discharge Clinical Impression: DVT (deep venous thrombosis) Qualifiers: DVT location: lower extremity Affected thrombotic vein of extremity: other lower extremity vein Laterality: right Chronicity: acute Qualified Code(s): I82.491 - Acute embolism and thrombosis of other specified deep vein of right lower extremity Condition: Stable Disposition: HOME, SELF-CARE Additional Instructions: DVT Outpatient Treatment You have deep venous thrombosis (DVT) in your leg. DVT or phlebitis is blood clots within the large deep veins. This causes redness, warmth, and tenderness of the involved area. This problem is more likely to affect people who smoke, take estrogen, have had recent surgery, have been immobile, have had previous DVT, or who have serious underlying health conditions. Keep your legs elevated. A heating pad, 20 minutes every two hours, can help with leg pain. For now, keep walking to a minimum. Don't do any physical work, lifting, or exercise. If the doctor has recommended medication for you, it 's important that you take it. You will be started on a blood-thinning medication. Follow-up is important. Your medication needs to be monitored. Call or return at once if you cough blood or vomit blood, pass black or bloody stool, or have any other unusual bleeding. DVT can cause serious complications. The clots can damage the valves in the veins, leading to chronic pain and swelling. If a clot breaks loose and floats upstream, it can stick in the lungs. A clot in the lungs, called pulmonary embolism, can be life-threatening. Call the doctor or return if you develop increasing leg pain and swelling, leg discoloration, fever, chest pain, or shortness of breath. Prescriptions: Rivaroxaban [Xarelto 10 mg Tablet] 10 mg PO DAILY #5 tablet Scribe Documentation - Scribe Written by Rosendo:: Rosendo Bergman, 07/07/[id number] acting as scribe for :: Trace
[2016-07-07 18:48] LABS: APPEARANCE,URINE SLIGHTLY-CLOUDY; BILIRUBIN,URINE NEGATIVE (NEGATIVE); CALCIUM OXALATE CRYSTALS,URINE MANY /HPF; GLUCOSE, URINE NEGATIVE (NEGATIVE); KETONES,URINE NEGATIVE (NEGATIVE); LEUKOCYTE ESTERASE,URINE NEGATIVE (NEGATIVE); NITRITE,URINE NEGATIVE (NEGATIVE); PROTEIN,URINE NEGATIVE (NEGATIVE); URINE SPECIFIC GRAVITY 1.018; UROBILINOGEN,URINE NEGATIVE mg/dL (<2.0)
--- NOTE | 2016-07-07 18:53 | EKG REPORT ---
SEVERITY:- BORDERLINE ECG - SINUS TACHYCARDIA LOW VOLTAGE EKG : Confirmed by: Servando Escalona MD 07-Jul-2016 18:52:59
[2016-07-07 21:02] VITALS: BP 135/52
== END 2016-07-07 18:50 | disposition home or self-care (01) ==
LOC: ER 16:08
DX: I25.10 Atherosclerotic heart disease of native coronary artery without angina pectoris (principal); I82.491 Acute embolism and thrombosis of other specified deep vein of right lower extremity; M79.604 Pain in right leg; J44.9 Chronic obstructive pulmonary disease, unspecified; I25.2 Old myocardial infarction; Z86.718 Personal history of other venous thrombosis and embolism; Z90.710 Acquired absence of both cervix and uterus
CPT/HCPCS: 71020; 81001; 93005; 93010; 99284

== ENCOUNTER → 2016-12-21 | Outpatient (CLI) | payer MEDICARE, OTHER ==
--- NOTE | 2016-12-21 13:16 | WOMENS IMAGING REPORT ---
EXAM DESCRIPTION: 3D SCREENING MAMMO BILAT COMPLETED DATE/TIME: 12/21/2016 11:23 am REASON FOR STUDY: ROUTINE SCREENING; Z12.31 Z12.31 ENCNTR SCREEN MAMMOGRAM FOR MALIGNANT NEOPLASM O F CATHY COMPARISON: 09/14/2011 and 08/27/2008. TECHNIQUE: Standard craniocaudal and mediolateral oblique views of each breast recorded using digita l acquisition and breast tomosynthesis. LIMITATIONS: None. FINDINGS: Findings present which are benign by mammographic criteria. No suspicious masses, calcifi cations or architectural distortion. Pertinent benign findings: Stable benign calcifications. Stable lymph node in the lateral right conor st. Read with the assistance of CAD. .[facility] - R2 Cenova Version 1.3 .[facility] Imaging - R2 Cenova Version 1.3 .[facility] Imaging - R2 Cenova Version 2.4 .[facility] [place] R2 Cenova Version 2.4 .[facility] - R2 Bindery Operator Version 9.2 Benign mammographic findings may include one or more of the following: Smooth masses, popcorn/rim/co arse calcifications, asymmetries, post-procedure changes, and lesions with long-standing stability. IMPRESSION: BENIGN MAMMOGRAPHIC FINDINGS. BIRADS 2 BREAST DENSITY: b. There are scattered areas of fibroglandular density. BIRAD: 2 BENIGN FINDING(S) RECOMMENDATION: RECOMMENDATION: ROUTINE SCREENING COMMENT: The patient has been notified of the results by letter per SA requirements. Additional no tification policies are in place for contacting patient with suspicious or incomplete findings. Quality ID #[id number]: The [employer] recommends an annual screening mammogram for women aged 40 years or over. This facility utilizes a reminder system to ensure that all patients receive reminder letters, and/or direct phone calls for appointments. This includes reminders for routine scr eening mammograms, diagnostic mammograms, or other Breast Imaging Interventions when appropriate. Th is patient will be placed in the appropriate reminder system. The [employer] (ACR) has developed recommendations for screening MRI of the breast s in certain patient populations, to be used in conjunction with mammography. Breast MRI surveillanc e may be appropriate for women with more than 20% lifetime risk of developing breast cancer as deter mined by genetic testing, significant family history of the disease, or history of mantle radiation f or Hodgkins Disease. ACR Practice Guidelines 2008. DBT Technology DBT is a type of tomographic mammography. With conventional mammography, overlapping breast tissue ma y make lesions difficult to detect, even with good compression. DBT uses an x-ray tube that rotates a round the breast, taking images at different angles. These images are then combined to create thin sl ices of the breast that the radiologist can view as a 3D reconstruction. The Hologic unit can perform full-field digital mammograms (2D imaging); or DBT (3D imaging); or both, in a combination mode that quickly performs both the mammogram and the tomosynthesis scan while the breast is still compressed. PQRS 6045F: Fluoroscopic imaging is not utilized for breast tomosynthesis. TECHNICAL DOCUMENTATION: FINDING NUMBER: (1) ASSESSMENT: (1) JOB ID: [id number] [email or web address]- All Rights Reserved
== END ==
LOC: WI 11:00
PROVIDERS: ATTEND Family Medicine
DX: Z12.31 Encounter for screening mammogram for malignant neoplasm of breast (principal)
CPT/HCPCS: 77063; G0202; 77067

== ENCOUNTER → 2018-02-17 | Outpatient (CLI) | payer MEDICARE, OTHER ==
--- NOTE | 2018-02-17 13:13 | WOMENS IMAGING REPORT ---
EXAM DESCRIPTION: 3D SCREENING MAMMO BILAT COMPLETED DATE/TIME: 02/17/2018 9:56 am REASON FOR STUDY: BILATERAL SCREENING MAMMO 3D/Z12.31 Z12.31 ENCNTR SCREEN MAMMOGRAM FOR MALIGNANT NEOPLASM OF CATHY COMPARISON: Multiple since 2008 TECHNIQUE: Standard craniocaudal and mediolateral oblique views of each breast recorded using digita l acquisition and breast tomosynthesis. LIMITATIONS: None. FINDINGS: Findings present which are benign by mammographic criteria. No suspicious masses, calcifi cations or architectural distortion. Pertinent benign findings: Stable right breast intramammary lymph nodes, stable left breast benign co arse dense calcifications Read with the assistance of CAD. .[facility] - R2 Cenova Version 1.3 .[facility] Imaging - R2 Cenova Version 1.3 .[facility] Imaging - R2 Cenova Version 2.4 .[facility] [place] R2 Cenova Version 2.4 .[facility] - R2 Corrugated Box Machine Operator Version 9.2 Benign mammographic findings may include one or more of the following: Smooth masses, popcorn/rim/co arse calcifications, asymmetries, post-procedure changes, and lesions with long-standing stability. IMPRESSION: BENIGN MAMMOGRAPHIC FINDINGS. BIRADS 2 BREAST DENSITY: b. There are scattered areas of fibroglandular density. BIRAD: 2 BENIGN FINDING(S) RECOMMENDATION: RECOMMENDATION: ROUTINE SCREENING Please continue yearly bilateral screening tomosynthesis in January 2019 COMMENT: The patient has been notified of the results by letter per SA requirements. Additional no tification policies are in place for contacting patient with suspicious or incomplete findings. Quality ID #[id number]: The [employer] recommends an annual screening mammogram for women aged 40 years or over. This facility utilizes a reminder system to ensure that all patients receive reminder letters, and/or direct phone calls for appointments. This includes reminders for routine scr eening mammograms, diagnostic mammograms, or other Breast Imaging Interventions when appropriate. Th is patient will be placed in the appropriate reminder system. The [employer] (ACR) has developed recommendations for screening MRI of the breast s in certain patient populations, to be used in conjunction with mammography. Breast MRI surveillanc e may be appropriate for women with more than 20% lifetime risk of developing breast cancer as deter mined by genetic testing, significant family history of the disease, or history of mantle radiation f or Hodgkins Disease. ACR Practice Guidelines 2008. DBT Technology DBT is a type of tomographic mammography. With conventional mammography, overlapping breast tissue ma y make lesions difficult to detect, even with good compression. DBT uses an x-ray tube that rotates a round the breast, taking images at different angles. These images are then combined to create thin sl ices of the breast that the radiologist can view as a 3D reconstruction. The Hologic unit can perform full-field digital mammograms (2D imaging); or DBT (3D imaging); or both, in a combination mode that quickly performs both the mammogram and the tomosynthesis scan while the breast is still compressed. PQRS 6045F: Fluoroscopic imaging is not utilized for breast tomosynthesis. TECHNICAL DOCUMENTATION: FINDING NUMBER: (1) ASSESSMENT: (1) JOB ID: [id number] [employer]- All Rights Reserved Reading location - IP/workstation name: [email or web address]
== END ==
LOC: WI 09:49
PROVIDERS: ATTEND Family Medicine
DX: Z12.31 Encounter for screening mammogram for malignant neoplasm of breast (principal)
CPT/HCPCS: 77063; 77067

== ENCOUNTER → 2018-08-18 | Outpatient (CLI) | payer MEDICARE, OTHER ==
--- NOTE | 2018-08-18 15:36 | RADIOLOGY REPORT (SQ) ---
EXAM DESCRIPTION: RIBS LEFT W/PA CHEST COMPLETED DATE/TIME: 08/18/2018 2:42 pm REASON FOR STUDY: RIB PAIN OF LEFT SIDE R07.81 PLEURODYNIA COMPARISON: None. TECHNIQUE: Frontal view of the chest and additional views of the left ribs acquired. NUMBER OF VIEWS: Five view. LIMITATIONS: None. FINDINGS: FRONTAL CXR: No pneumothorax. No pleural effusion. No atelectasis or infiltrates. RIBS: No displaced rib fractures. No lytic or blastic bony lesions. OTHER: No other significant finding. IMPRESSION: NO PNEUMOTHORAX. NO DISPLACED RIB FRACTURES. COMMENT: SITE OF TRAUMA/COMPLAINT MARKED/STAMP COMPLETED: YES. TECHNICAL DOCUMENTATION: JOB ID: [id number] [employer]- All Rights Reserved Reading location - IP/workstation name: [email or web address]
== END ==
LOC: OD 14:14
PROVIDERS: ATTEND Nurse Practitioner Acute Care
DX: R07.81 Pleurodynia (principal)

== ENCOUNTER 2019-01-10 12:40 | Emergency (ER) | payer MEDICARE, OTHER ==
[2019-01-10] MEDS ORDERED: METHYLPREDNISOLONE INJ 125 MG/2 ML SDV IV ONE (13:36)
[2019-01-10] MEDS ORDERED: IPRATROPIUM/ALBUTEROL 0.5-2.5 MG/3 ML AMPUL NEB ONE (13:36)
[2019-01-10] MEDS ORDERED: ASPIRIN 81 MG TABLET, CHEWABLE PO ONE (13:37)
--- NOTE | 2019-01-10 13:37 | ER Document Report ---
ED Medical Screen (RME) - General Mode of Arrival: Ambulatory Information source: Patient TRAVEL OUTSIDE OF THE [place] IN LAST 30 DAYS: No <WILL SHOEMAKER - Last Filed: 01/10/19 13:38> <PAULETET MANZANARES - Last Filed: 01/10/19 17:25> - General Chief Complaint: Breathing Difficulty Stated Complaint: SHORTNESS OF BREATH Time Seen by Provider: 01/10/19 13:32 Primary Care Provider: LYNN MOSES, RENTAL SALES ASSOCIATE [NURSE PRACTITIONER] - Follow up as needed Notes: Patient presents complaining of cough difficulty breathing for the past 3 days. Patient does report some mild chest discomfort but she attributes this to cou ghing. Patient denies any fever nausea or vomiting. Patient does wear 2 L of oxygen at home but states that she has not been able to tolerate the oxygen due to her congestion. Patient does have a history of COPD, SC, appendectomy, hysterectomy and cardiac stents. I have greeted and performed a rapid initial assessment of this patient. A comprehensive ED assessment and evaluation of the patient, analysis of test results and completion of the medical decision making process will be conducted by additional ED providers. (WILL SHOEMAKER) - Related Data Allergies/Adverse Reactions: No Known Allergies Allergy (Verified 01/10/19 12:40) Past Medical History - Social History Frequency of alcohol use: None Drug Abuse: None - Past Medical History Cardiac Medical History: Reports: Hx Coronary Artery Disease, Hx Heart Attack - 2010 stents placed Denies: Hx Atrial Fibrillation, Hx DVT, Hx Hypertension Pulmonary Medical History: Reports: Hx COPD Denies: Hx Asthma, Hx Bronchitis, Hx Pneumonia Neurological Medical History: Denies: Hx Cerebrovascular Accident, Hx Seizures Renal/ Medical History: Denies: Hx Peritoneal Dialysis Musculoskeltal Medical History: Reports Hx Arthritis Past Surgical History: Reports: Hx Appendectomy, Hx Hysterectomy - Immunizations Hx Diphtheria, Pertussis, Tetanus Vaccination: Yes - Many years <WILL SHOEMAKER - Last Filed: 01/10/19 13:38> Physical Exam - Respiratory Breath sounds: Decreased air movement, Rhonchi, Wheezing <WILL SHOEMAKER - Last Filed: 01/10/19 13:38> - Vital signs Vitals: Temp Pulse Resp BP Pulse Ox 97.7 F 111 H 18 140/61 H 96 01/10/19 12:50 01/10/19 12:50 01/10/19 12:50 01/10/19 12:50 01/10/19 12:50 Course - Laboratory Result Diagrams: 01/10/19 14:35 01/10/19 14:35 - EKG Interpretation by Me EKG shows normal: Sinus rhythm, Avinger, Intervals Rate: Normal <PAULETTE MANZANARES - Last Filed: 01/10/19 17:25> - Vital Signs Vital signs: Temp Pulse Resp BP Pulse Ox 97.7 F 111 H 24 H 143/70 H 97 01/10/19 12:50 01/10/19 12:50 01/10/19 16:01 01/10/19 16:01 01/10/19 16:01 - Laboratory Laboratory results interpreted by me: 01/10/19 14:35 RDW 14.2 H - EKG Interpretation by Me Additional EKG results interpreted by me: 01/10/19 17:25 No ischemic changes (PAULETTE MANZANARES) Doctor's Discharge <WILL SHOEMAKER - Last Filed: 01/10/19 13:38> <PAULETTE MANZANARES - Last Filed: 01/10/19 17:25> - Discharge Referrals: LYNN MOSES, RENTAL SALES ASSOCIATE [NURSE PRACTITIONER] - Follow up as needed
[2019-01-10] MEDS: ALBUTEROL SULFATE 0.083% NEB 2.5 MG/3 ML AMPUL NEB SCH ×2 (14:07→15:39)
--- NOTE | 2019-01-10 14:18 | RADIOLOGY REPORT (SQ) ---
EXAM DESCRIPTION: CHEST 2 VIEWS COMPLETED DATE/TIME: 01/10/2019 2:01 pm REASON FOR STUDY: cough, cp COMPARISON: 07/07/2016 EXAM PARAMETERS: NUMBER OF VIEWS: two views TECHNIQUE: Digital Frontal and Lateral radiographic views of the chest acquired. RADIATION DOSE: NA LIMITATIONS: none FINDINGS: LUNGS AND PLEURA: Chronic interstitial changes without opacities, masses or pneumothorax. No pleural effusion. MEDIASTINUM AND HILAR STRUCTURES: No masses or contour abnormalities. HEART AND VASCULAR STRUCTURES: Heart normal size. No evidence for failure. BONES: Exaggerated thoracic kyphosis, stable. No acute findings. Degenerative changes at the should ers. HARDWARE: None in the chest. OTHER: No other significant finding. IMPRESSION: Chronic changes without evidence of acute cardiopulmonary process TECHNICAL DOCUMENTATION: JOB ID: [id number] [email or web address]- All Rights Reserved Reading location - IP/workstation name: [email or web address]
[2019-01-10 15:04] LABS: ABSOLUTE EOSINOPHILS # (AUTO) 0.2 10^3/uL (0.0-0.6); ABSOLUTE LYMPHOCYTES (AUTO) 1.4 10^3/uL (0.5-4.7); ABSOLUTE MONOCYTES (AUTO) 0.7 10^3/uL (0.1-1.4); ABSOLUTE NEUT (AUTO) 3.5 10^3/uL (1.7-8.2); BASOPHILS % (AUTO) 0.4 % (0-2); EOSINOPHILS % (AUTO) 4.1 % (0-6); HEMOGLOBIN 13.9 g/dL (12.0-15.5); LYMPHOCYTES % (AUTO) 23.3 % (13-45); MEAN CORPUSCULAR HGB CONC 33.1 g/dL (32.0-36.0); MEAN CORPUSCULAR VOLUME 97 fl (80-97); MONOCYTES % (AUTO) 11.9 % (3-13); PLATELET COUNT 199 10^3/uL (150-450); RED BLOOD COUNT 4.35 10^6/uL (3.72-5.28); RED CELL DISTRIBUTION WIDTH 14.2 % (11.5-14.0); SEGMENTED NEUTROPHILS % (AUTO) 60.3 % (42-78); TOTAL CELLS COUNTED % (AUTO) 100 %; WHITE BLOOD COUNT 5.9 10^3/uL (4.0-10.5)
[2019-01-10 15:12] LABS: ALBUMIN 4.6 g/dL (3.5-5.0); ALKALINE PHOSPHATASE 83 U/L (38-126); ANION GAP 11 (5-19); ASPARTATE AMINO TRANSFERASE 30 U/L (14-36); BILIRUBIN,DIRECT 0.2 mg/dL (0.0-0.4); BILIRUBIN,TOTAL 0.4 mg/dL (0.2-1.3); BLOOD UREA NITROGEN 13 mg/dL (7-20); CALCIUM 9.9 mg/dL (8.4-10.2); CARBON DIOXIDE 29 mmol/L (22-30); CHLORIDE 103 mmol/L (98-107); GLUCOSE 85 mg/dL (75-110); POTASSIUM 4.3 mmol/L (3.6-5.0); TOTAL PROTEIN 7.5 g/dL (6.3-8.2)
[2019-01-10 15:24] LABS: NT PRO BNP 522 pg/mL (5-900)
[2019-01-10 15:25] LABS: TROPONIN I < 0.012 ng/mL
--- NOTE | 2019-01-10 17:30 | ER Document Report ---
ED General - General Chief Complaint: Breathing Difficulty Stated Complaint: SHORTNESS OF BREATH Time Seen by Provider: 01/10/19 13:32 Primary Care Provider: LYNN MOSES NP [NURSE PRACTITIONER] - Follow up as needed Mode of Arrival: Ambulatory TRAVEL OUTSIDE OF THE [place] IN LAST 30 DAYS: No - HPI Notes: 68-year-old female, oxygen dependent on 2 L, history of COPD presents with coughing of clear breathing. Gradual onset of a couple of days, some mild chest tightness with cough. Generally clear sputum, no change of her baseline. Moderate intensity, gradual onset, nonradiating. No fever. Worse with exertion. No other modifying factors, no other associated symptoms, no other provocative or palliative factors. - Related Data Allergies/Adverse Reactions: No Known Allergies Allergy (Verified 01/10/19 12:40) Past Medical History - General Information source: Patient - Social History Smoking Status: Current Every Day Smoker Frequency of alcohol use: None Drug Abuse: None Family History: COPD Patient has suicidal ideation: No Patient has homicidal ideation: No - Past Medical History Cardiac Medical History: Reports: Hx Coronary Artery Disease, Hx Heart Attack - 2009 stents placed Denies: Hx Atrial Fibrillation, Hx DVT, Hx Hypertension Pulmonary Medical History: Reports: Hx COPD Denies: Hx Asthma, Hx Bronchitis, Hx Pneumonia Neurological Medical History: Denies: Hx Cerebrovascular Accident, Hx Seizures Renal/ Medical History: Denies: Hx Peritoneal Dialysis Musculoskeletal Medical History: Reports Hx Arthritis Past Surgical History: Reports: Hx Appendectomy, Hx Hysterectomy - Immunizations Hx Diphtheria, Pertussis, Tetanus Vaccination: Yes - Many years Review of Systems - Review of Systems Notes: Review of systems as in the history of present illness, otherwise negative x 10 systems. Physical Exam - Vital signs Vitals: Temp Pulse Resp BP Pulse Ox 97.7 F 111 H 18 140/61 H 96 01/10/19 12:50 01/10/19 12:50 01/10/19 12:50 01/10/19 12:50 01/10/19 12:50 - Notes Notes: General: Well developed . HEENT: Normocephalic, atraumatic. Pupils equal round reactive to light. No JVD. Chest: No trauma. Respiratory: Good air exchange, normal excursion. Cardiac: Regular rhythm. No murmurs or gallops. Abdomen: Soft, benign. Nondistended. Nontender. Back: No asymmetry or gross abnormality. Motor: Grossly normal power and tone. Neurologic: Alert, nonfocal. Cranial nerves II-12 are intact. Sensation intact. Vascular: Well perfused. Normal peripheral pulses. Skin: No petechiae or purpura. Course - Re-evaluation Re-evalutation: 01/10/19 17:28 This is a well-appearing 68-year-old female with the after mentioned symptoms. She was seen by the physician in triage ordered labs, x-ray, bronchodilators and studies. Apparently was wheezing in triage, however, initially evaluated her after the completion of her therapy, she is clear but coarse. Patient states she has had complete improvement. Review of her labs show unremarkable CBC, chemistries and troponin. Chest x-ray is unremarkable, no evidence of acute pneumonia. Given the absence of any significant acute change in sputum production, no indication for antibiotics. Patient is evidence of COPD exacerbation. Will treat at home with continued bronchodilator therapy, prescription for oral steroids as given. - Vital Signs Vital signs: Temp Pulse Resp BP Pulse Ox 97.7 F 111 H 24 H 143/70 H 97 01/10/19 12:50 01/10/19 12:50 01/10/19 16:01 01/10/19 16:01 01/10/19 16:01 - Laboratory Result Diagrams: 01/10/19 14:35 01/10/19 14:35 Laboratory results interpreted by me: 01/10/19 14:35 RDW 14.2 H Discharge - Discharge Clinical Impression: COPD (chronic obstructive pulmonary disease) Qualifiers: COPD type: COPD with acute exacerbation Qualified Code(s): J44.1 - Chronic obstructive pulmonary disease with (acute) exacerbation Condition: Stable Disposition: HOME, SELF-CARE Instructions: Chronic Obstructive Lung Disease ([facility]) Prescriptions: Prednisone [Deltasone 20 mg Tablet] 2 tab PO DAILY 5 Days #10 tablet Referrals: LYNN MOSES NP [NURSE PRACTITIONER] - Follow up as needed
[2019-01-10 18:08] VITALS: BP 144/58
--- NOTE | 2019-01-11 14:50 | EKG REPORT ---
SEVERITY:- ABNORMAL ECG - SINUS RHYTHM INFERIOR INFARCT, OLD BORDERLINE R WAVE PROGRESSION, ANTERIOR LEADS BORDERLINE PROLONGED QT INTERVAL : Confirmed by: Lori Duffy 11-Jan-2019 14:49:43
== END 2019-01-10 18:13 | disposition home or self-care (01) ==
LOC: ER 12:40
DX: J44.1 Chronic obstructive pulmonary disease with (acute) exacerbation (principal); Z99.81 Dependence on supplemental oxygen; R07.89 Other chest pain; R05 Cough; F17.200 Nicotine dependence, unspecified, uncomplicated; I25.10 Atherosclerotic heart disease of native coronary artery without angina pectoris; I25.2 Old myocardial infarction
CPT/HCPCS: 93005; 94640 ×2; 99285; 96374; 36415; 85025; 80053; 84484; 83880; 71046; 93010; J2930; A9270 ×2; J7620

== ENCOUNTER 2019-01-15 13:59 | Emergency (ER) | payer MEDICARE, OTHER ==
--- NOTE | 2019-01-15 14:33 | ER Document Report ---
ED General - General Chief Complaint: Breathing Difficulty Stated Complaint: DIFFICULTY BREATHING Time Seen by Provider: 01/15/19 14:20 Primary Care Provider: NOA WALDRON NP [Primary Care Provider] - Follow up in 3-5 days Notes: Patient is a 68-year-old female with COPD that presents to the emergency department for chief complaint of shortness of breath and epigastric pain. Patient reports that she was here on Wednesday, for a flare of her COPD, was discharged on prednisone has not improved much, she is stayed about the same, still feeling short of breath, she does wear 2 L of oxygen by nasal cannula, almost 24 hours a day she admits she does not always wear her oxygen. She also states she is been having constant epigastric pain, that seems to be worse with meals, over the past several days as well. Does not seem any worse with deep breathing, and denies any associated diaphoresis, nausea or vomiting. Does not seem to be any worse with exertion. She does notice that it seems to be worse at night. She states she is had upper and lower endoscopy, the states she is had reflux disease, and is not sure she has had hiatal hernia in the past. She does have a history of CAD, with stents, but this pain does not seem to be associated or feel like the pain she is had in her heart in the past. Past Medical History: COPD, hypertension, CAD Past Surgical History: PCI with stenting Social History: Admits to smoking cigarettes, denies alcohol or drug use. Family History: Reviewed and noncontributory for presenting illness Allergies: Reviewed, see documented allergy list. REVIEW OF SYSTEMS: Other than noted above, the 12 point review of systems was reviewed with the patient and were negative, all pertinent findings are included in the HPI. PHYSICAL EXAMINATION: Vital signs reviewed, nursing noted reviewed. GENERAL: Obese, elderly female, no acute distress HEAD: Atraumatic, normocephalic. EYES: Eyes appear normal, extraocular movements intact, sclera anicteric, conjunctiva are normal. ENT: nares patent, oropharynx clear without exudates. Moist mucous membranes. NECK: Normal range of motion, supple without lymphadenopathy LUNGS: Severely diminished lung sounds, with expiratory wheezing noted bilaterally, but no acute respiratory distress HEART: Regular rate and rhythm without murmurs ABDOMEN: Soft, reproducible epigastric tenderness to palpation, with mild right upper quadrant tenderness to palpation, equivocal Grigsby sign, normoactive bowel sounds. No rebound, guarding, or rigidity. No masses appreciated. EXTREMITIES: Nontender, good range of motion, no pitting or edema. NEUROLOGICAL: No focal neurological deficits. Moves all extremities spontaneously Motor and sensory grossly intact on exam. PSYCH: Normal mood, normal affect. SKIN: Warm, Dry, normal turgor, no rashes or lesions noted on exposed skin TRAVEL OUTSIDE OF THE [place] IN LAST 30 DAYS: No - Related Data Allergies/Adverse Reactions: No Known Allergies Allergy (Verified 01/10/19 12:40) Past Medical History - Social History Smoking Status: Current Every Day Smoker Family History: Reviewed & Not Pertinent, COPD - Past Medical History Cardiac Medical History: Reports: Hx Coronary Artery Disease, Hx Heart Attack - 2009 stents placed Denies: Hx Atrial Fibrillation, Hx DVT, Hx Hypertension Pulmonary Medical History: Reports: Hx COPD Denies: Hx Asthma, Hx Bronchitis, Hx Pneumonia Neurological Medical History: Denies: Hx Cerebrovascular Accident, Hx Seizures Renal/ Medical History: Denies: Hx Peritoneal Dialysis Musculoskeletal Medical History: Reports Hx Arthritis Past Surgical History: Reports: Hx Appendectomy, Hx Hysterectomy - Immunizations Hx Diphtheria, Pertussis, Tetanus Vaccination: Yes - Many years Physical Exam - Vital signs Vitals: Temp Pulse Resp BP Pulse Ox 98.1 F 105 H 21 H 157/97 H 87 L 01/15/19 14:05 01/15/19 14:05 01/15/19 14:05 01/15/19 14:05 01/15/19 14:05 Course - Re-evaluation Re-evalutation: Patient seen and examined vital signs reviewed. Laboratory data and/or imaging were ordered as appropriate for the patient's presenting symptoms and complaint, with consideration of any critical or life threatening conditions that may be associated with their obtained history and exam as noted above. Patient was treated with DuoNeb breathing treatments, budesonide inhaled, IV Solu-Medrol, and IV magnesium Results were reviewed when available and demonstrated negative troponin, chest x-ray negative for acute findings, such as pneumonia, or pulmonary edema, EKG was change from prior, right upper quadrant ultrasound was negative for signs of acute cholecystitis, as well as normal lipase. The patient was re-evaluated and was stable and improved, lung sounds improved, increased air movement, patient was maintaining a pulse ox of greater than 94% on her home 2 L nasal cannula, and she was feeling much better. I feel the patient's epigastric abdominal pain, is likely related to gastritis, versus duodenitis, versus reflux disease, she does have tenderness to palpation in area and is reproducible, worse with food, will treat her for gastritis versus GERD, with omeprazole, will treat the exacerbation of her COPD with an increased prednisone taper, and she is given a refill on her albuterol, and advised to follow-up with her primary care. Evaluation was most consistent with acute exacerbation of COPD and epigastric abdominal pain. Results were discussed with the patient at this point, after careful consideration I feel that that patient can be discharged from the emergency department, the patient was educated treatments and reasons to return to the emergency department based on their presumed diagnosis as noted above, they were advised to followup with a primary care physician in 2-3 days. Patient was agreeable to plan of care. *Note is created using voice recognition software and may contain spelling, syntax or grammatical errors. Laboratory 01/15/19 01/15/19 01/15/19 14:26 14:26 14:26 WBC 10.2 RBC 4.34 Hgb 13.8 Hct 41.8 MCV 96 MCH 31.8 MCHC 33.1 RDW 13.9 Plt Count 208 Seg Neutrophils % 78.7 H Lymphocytes % 11.2 L Monocytes % 8.8 Eosinophils % 1.0 Basophils % 0.3 Absolute Neutrophils 8.0 Absolute Lymphocytes 1.1 Absolute Monocytes 0.9 Absolute Eosinophils 0.1 Absolute Basophils 0.0 Sodium 139.2 Potassium 3.8 Chloride 100 Carbon Dioxide 33 H Anion Gap 6 BUN 17 Creatinine 0.48 L Est GFR ( Amer) > 60 Est GFR (Non-Af Amer) > 60 Glucose 84 Calcium 9.1 Total Bilirubin 0.5 Direct Bilirubin 0.2 Neonat Total Bilirubin Not Reportable Neonat Direct Bilirubin Not Reportable Neonat Indirect Bili Not Reportable AST 24 ALT 34 Alkaline Phosphatase 80 Creatine Kinase 33 CK-MB (CK-2) 1.13 Troponin I < 0.012 Total Protein 7.2 Albumin 4.2 Lipase 01/15/19 14:26 WBC RBC Hgb Hct MCV MCH MCHC RDW Plt Count Seg Neutrophils % Lymphocytes % Monocytes % Eosinophils % Basophils % Absolute Neutrophils Absolute Lymphocytes Absolute Monocytes Absolute Eosinophils Absolute Basophils Sodium Potassium Chloride Carbon Dioxide Anion Gap BUN Creatinine Est GFR ( Amer) Est GFR (Non-Af Amer) Glucose Calcium Total Bilirubin Direct Bilirubin Neonat Total Bilirubin Neonat Direct Bilirubin Neonat Indirect Bili AST ALT Alkaline Phosphatase Creatine Kinase CK-MB (CK-2) Troponin I Total Protein Albumin Lipase 65.5 Abdomen Ultrasound 01/15/19 14:33 IMPRESSION: Mild fatty infiltration of the liver. No gallstones or acute inflammatory changes. Chest X-Ray 01/15/19 14:33 IMPRESSION: NO ACUTE FINDINGS. - Vital Signs Vital signs: Temp Pulse Resp BP Pulse Ox 98.1 F 105 H 18 162/95 H 95 01/15/19 14:05 01/15/19 14:05 01/15/19 17:03 01/15/19 17:03 01/15/19 17:03 - Laboratory Result Diagrams: 01/15/19 14:26 01/15/19 14:26 Laboratory results interpreted by me: 01/15/19 01/15/19 14:26 14:26 Seg Neutrophils % 78.7 H Lymphocytes % 11.2 L Carbon Dioxide 33 H Creatinine 0.48 L - EKG Interpretation by Me Additional EKG results interpreted by me: EKG demonstrates sinus rhythm with a ventricular rate of 90 bpm, normal axis, normal intervals, rare PVC, no ST elevation, this is compared with prior EKG, from 01/10 chest 2018, without significant change. Discharge - Discharge Clinical Impression: Acute exacerbation of chronic obstructive pulmonary disease (COPD), Epigastric pain Condition: Stable Disposition: HOME, SELF-CARE Instructions: Chronic Obstructive Lung Disease ([facility]), Reflux Disease (GERD) ([facility]) Additional Instructions: Please take the prescribed medications as directed, and when she to use the albuterol at least 4 times daily, start using the inhaled Flonase, 1 spray each nostril twice daily, and the prednisone as directed, please follow-up with your primary care physician, I also want you to start taking the omeprazole to see if it will help with the pain you are having in her abdomen, please avoid smoking, caffeine, and and mints, as these foods can exacerbate that pain. Prescriptions: RX: Albuterol Sulfate [Proventil 0.5% Neb 2.5 mg/0.5 ml Vial.neb] 2.5 mg NEB QID #100 vial Fluticasone Propionate [Flonase Nasal [place] 50 Mcg/[place] 16 gm] 1 spray NASL Q12 #1 inhaler RX: Omeprazole 40 mg PO DAILY #30 capsule. RX: Prednisone 10 mg PO ASDIR #60 tablet Referrals: NOA WALDRON NP [Primary Care Provider] - Follow up in 3-5 days
[2019-01-15] MEDS ORDERED: MAGNESIUM SULFATE/D5W 1 GM/100 ML RTUPB IV ONE (14:34)
[2019-01-15] MEDS ORDERED: BUDESONIDE NEB 0.5 MG/2 ML AMPUL NEB ONE (14:34)
[2019-01-15] MEDS ORDERED: METHYLPREDNISOLONE INJ 125 MG/2 ML SDV IV ONE (14:34)
[2019-01-15] MEDS ORDERED: IPRATROPIUM/ALBUTEROL 0.5-2.5 MG/3 ML AMPUL NEB ONE (14:34)
[2019-01-15 14:39] LABS: ABSOLUTE EOSINOPHILS # (AUTO) 0.1 10^3/uL (0.0-0.6); ABSOLUTE LYMPHOCYTES (AUTO) 1.1 10^3/uL (0.5-4.7); ABSOLUTE MONOCYTES (AUTO) 0.9 10^3/uL (0.1-1.4); BASOPHILS % (AUTO) 0.3 % (0-2); HEMATOCRIT 41.8 % (36.0-47.0); HEMOGLOBIN 13.8 g/dL (12.0-15.5); LYMPHOCYTES % (AUTO) 11.2 % (13-45); MEAN CORPUSCULAR HEMOGLOBIN 31.8 pg (27.0-33.4); MEAN CORPUSCULAR HGB CONC 33.1 g/dL (32.0-36.0); MEAN CORPUSCULAR VOLUME 96 fl (80-97); MONOCYTES % (AUTO) 8.8 % (3-13); PLATELET COUNT 208 10^3/uL (150-450); RED BLOOD COUNT 4.34 10^6/uL (3.72-5.28); RED CELL DISTRIBUTION WIDTH 13.9 % (11.5-14.0); SEGMENTED NEUTROPHILS % (AUTO) 78.7 % (42-78); TOTAL CELLS COUNTED % (AUTO) 100 %; WHITE BLOOD COUNT 10.2 10^3/uL (4.0-10.5)
[2019-01-15 15:03] LABS: ALBUMIN 4.2 g/dL (3.5-5.0); ALKALINE PHOSPHATASE 80 U/L (38-126); ANION GAP 6 (5-19); ASPARTATE AMINO TRANSFERASE 24 U/L (14-36); BILIRUBIN,DIRECT 0.2 mg/dL (0.0-0.4); BILIRUBIN,TOTAL 0.5 mg/dL (0.2-1.3); BLOOD UREA NITROGEN 17 mg/dL (7-20); CALCIUM 9.1 mg/dL (8.4-10.2); CARBON DIOXIDE 33 mmol/L (22-30); CHLORIDE 100 mmol/L (98-107); CREATINE KINASE 33 U/L (30-135); GLUCOSE 84 mg/dL (75-110); POTASSIUM 3.8 mmol/L (3.6-5.0); TOTAL PROTEIN 7.2 g/dL (6.3-8.2)
[2019-01-15 15:14] LABS: CREATINE KINASE MB 1.13 ng/mL (<4.55)
[2019-01-15 15:18] LABS: TROPONIN I < 0.012 ng/mL
--- NOTE | 2019-01-15 15:19 | RADIOLOGY REPORT (SQ) ---
EXAM DESCRIPTION: CHEST SINGLE VIEW COMPLETED DATE/TIME: 01/15/2019 3:11 pm REASON FOR STUDY: dyspnea COMPARISON: 01/10/2019 TECHNIQUE: Single frontal radiographic view of the chest acquired. NUMBER OF VIEWS: One view. LIMITATIONS: None. FINDINGS: LUNGS AND PLEURA: No pneumothorax. No consolidation or pleural effusion. MEDIASTINUM AND HILAR STRUCTURES: Stable. HEART AND VASCULAR STRUCTURES: Stable. BONES: No acute findings. HARDWARE: None in the chest. OTHER: No other significant finding. IMPRESSION: NO ACUTE FINDINGS. TECHNICAL DOCUMENTATION: JOB ID: [id number] 2010 [employer]- All Rights Reserved Reading location - IP/workstation name: [email or web address]
--- NOTE | 2019-01-15 16:25 | RADIOLOGY REPORT (SQ) ---
EXAM DESCRIPTION: U/S ABDOMEN LIMITED W/O DOP COMPLETED DATE/TIME: 01/15/2019 4:11 pm REASON FOR STUDY: ruq and epigastric abdominal pain COMPARISON: None. TECHNIQUE: Dynamic and static grayscale images acquired of the abdomen and recorded on PACS. Additio nal selected color Doppler and spectral images recorded. LIMITATIONS: Bowel gas. FINDINGS: PANCREAS: Obscured by bowel gas. LIVER: No masses. Echotexture mildly increased. LIVER VASCULATURE: Normal directional flow of the main portal vein and hepatic veins. GALLBLADDER: No stones. Normal wall thickness. No pericholecystic fluid. ULTRASOUND-DETECTED SAUER'S SIGN: Negative. INTRAHEPATIC DUCTS AND COMMON DUCT: CBD and intrahepatic ducts normal caliber. No filling defects. INFERIOR VENA CAVA: Normal flow. AORTA: Obscured by bowel gas. RIGHT KIDNEY: Normal size. Normal echogenicity. No solid or suspicious masses. No hydronephros is. No calcifications. PERITONEAL AND RIGHT PLEURAL SPACE: No ascites or effusions. OTHER: No other significant findings. IMPRESSION: Mild fatty infiltration of the liver. No gallstones or acute inflammatory changes. TECHNICAL DOCUMENTATION: JOB ID: [id number] 2010 [employer]- All Rights Reserved Reading location - IP/workstation name: [email or web address]
[2019-01-15 17:15] VITALS: BP 162/95
--- NOTE | 2019-01-16 00:32 | EKG REPORT ---
SEVERITY:- ABNORMAL ECG - SINUS RHYTHM VENTRICULAR PREMATURE COMPLEX INFERIOR INFARCT, OLD : Confirmed by: Lori Duffy 16-Jan-2019 00:32:12
== END 2019-01-15 17:15 | disposition home or self-care (01) ==
LOC: ER 13:59
DX: J44.1 Chronic obstructive pulmonary disease with (acute) exacerbation (principal); R10.13 Epigastric pain; R06.02 Shortness of breath; Z99.81 Dependence on supplemental oxygen; I10 Essential (primary) hypertension; I25.10 Atherosclerotic heart disease of native coronary artery without angina pectoris; F17.210 Nicotine dependence, cigarettes, uncomplicated
CPT/HCPCS: 93005; 94640 ×2; 99285; 96374; 36415; 82553; 82550; 83690; 85025; 80053; 84484; 71045; 76705; 93010; J2930; J3475; A9270; J7620

== ENCOUNTER → 2019-11-28 | Outpatient (CLI) | payer MEDICARE, OTHER ==
--- NOTE | 2019-11-28 12:27 | WOMENS IMAGING REPORT ---
EXAM DESCRIPTION: BILAT SCREENING MAMMO W/CAD IMAGES COMPLETED DATE/TIME: 11/28/2019 11:32 am REASON FOR STUDY: Z12.31 ENCOUNTER FOR SCREENING MAMMOGRAM FOR MALIGNANT NEOPLASM OF BREAST Z12.31 ENCNTR SCREEN MAMMOGRAM FOR MALIGNANT NEOPLASM OF CATHY COMPARISON: 2011, 2016 EXAM PARAMETERS: Standard craniocaudal and mediolateral oblique views of each breast recorded using digital acquisition. Read with the assistance of CAD. .[facility] - [employer] Residence Manager Version 9.2 LIMITATIONS: None. FINDINGS: No suspicious masses, suspicious calcifications or architectural distortion. No areas of c oncern. IMPRESSION: NEGATIVE MAMMOGRAM. BIRADS 1 BREAST DENSITY: b. There are scattered areas of fibroglandular density. BIRAD: ASSESSMENT: 1 NEGATIVE RECOMMENDATION: ROUTINE SCREENING COMMENT: The patient has been notified of the results by letter per MQSA requirements. Additional no tification policies are in place for contacting patient with suspicious or incomplete findings. Quality ID #225: The [employer] recommends an annual screening mammogram for women aged 40 years or over. This facility utilizes a reminder system to ensure that all patients receive reminder letters, and/or direct phone calls for appointments. This includes reminders for routine scr eening mammograms, diagnostic mammograms, or other Breast Imaging Interventions when appropriate. Th is patient will be placed in the appropriate reminder system. TECHNICAL DOCUMENTATION: FINDING NUMBER: (1) ASSESSMENT: (1) JOB ID: [id number] 2010 [employer]- All Rights Reserved Reading location - IP/workstation name: [email or web address]
== END ==
LOC: WI 11:09
PROVIDERS: ATTEND Physician Assistant
DX: Z12.31 Encounter for screening mammogram for malignant neoplasm of breast (principal)
CPT/HCPCS: 77067

== ENCOUNTER 2020-04-05 08:11 | Day surgery (SDC) | payer MEDICARE, OTHER ==
--- NOTE | 2020-04-02 11:40 | RADIOLOGY REPORT (SQ) ---
EXAM DESCRIPTION: CHEST PA/LATERAL IMAGES COMPLETED DATE/TIME: 04/02/2020 11:30 am REASON FOR STUDY: PRE-OP COMPARISON: 01/15/2019 EXAM PARAMETERS: NUMBER OF VIEWS: two views TECHNIQUE: Digital Frontal and Lateral radiographic views of the chest acquired. RADIATION DOSE: NA LIMITATIONS: none FINDINGS: LUNGS AND PLEURA: No focal consolidation, pleural effusion or pneumothorax. Prominent vas cular interstitial markings. MEDIASTINUM AND HILAR STRUCTURES: No masses or contour abnormalities. HEART AND VASCULAR STRUCTURES: Enlarged cardiac silhouette with central vascular congestion. No over t edema. BONES: No acute findings. HARDWARE: None in the chest. OTHER: No other significant finding. IMPRESSION: Enlarged cardiac silhouette and central vascular congestion without overt edema. TECHNICAL DOCUMENTATION: JOB ID: [id number] 2010 [employer]- All Rights Reserved Reading location - IP/workstation name: [email or web address]
[2020-04-02 12:15] LABS: ABSOLUTE EOSINOPHILS # (AUTO) 0.2 10^3/uL (0.0-0.6); ABSOLUTE LYMPHOCYTES (AUTO) 1.4 10^3/uL (0.5-4.7); ABSOLUTE MONOCYTES (AUTO) 0.5 10^3/uL (0.1-1.4); ABSOLUTE NEUT (AUTO) 5.4 10^3/uL (1.7-8.2); BASOPHILS % (AUTO) 0.4 % (0-2); EOSINOPHILS % (AUTO) 2.8 % (0-6); HEMATOCRIT 40.7 % (36.0-47.0); HEMOGLOBIN 13.9 g/dL (12.0-15.5); LYMPHOCYTES % (AUTO) 18.1 % (13-45); MEAN CORPUSCULAR HEMOGLOBIN 33.7 pg (27.0-33.4); MEAN CORPUSCULAR HGB CONC 34.3 g/dL (32.0-36.0); MEAN CORPUSCULAR VOLUME 99 fl (80-97); MONOCYTES % (AUTO) 6.8 % (3-13); PLATELET COUNT 194 10^3/uL (150-450); RED BLOOD COUNT 4.13 10^6/uL (3.72-5.28); RED CELL DISTRIBUTION WIDTH 13.5 % (11.5-14.0); SEGMENTED NEUTROPHILS % (AUTO) 71.9 % (42-78); TOTAL CELLS COUNTED % (AUTO) 100 %; WHITE BLOOD COUNT 7.5 10^3/uL (4.0-10.5)
[2020-04-02 12:43] LABS: ANION GAP 9 (5-19); BLOOD UREA NITROGEN 13 mg/dL (7-20); CALCIUM 9.3 mg/dL (8.4-10.2); CARBON DIOXIDE 28 mmol/L (22-30); CHLORIDE 106 mmol/L (98-107); GLUCOSE 127 mg/dL (75-110); POTASSIUM 4.4 mmol/L (3.6-5.0)
--- NOTE | 2020-04-02 16:47 | EKG REPORT ---
SEVERITY:- ABNORMAL ECG - SINUS ARRHYTHMIA, RATE 61-84 PVC INFERIOR INFARCT, AGE INDETERMINATE : Confirmed by: Ariel Ivory MD 02-Apr-2020 16:46:28
[~2020-04-05 08:11] MED LIST: CEFAZOLIN 2 GM/D5W RTU 2 GM/50 ML RTUPB IV PRN; DEXAMETHASONE SOD PHOSPHATE INJ 4 MG/1 ML VIAL ONE; FENTANYL CITRATE INJ/PF 100 MCG/2 ML AMPUL ONE; HYDROMORPHONE HCL INJ/PF 2 MG/ML AMPULE ONE; LACTATED RINGERS 1000 ML IV PRN; LIDOCAINE 0.5% INJ-PF (5 MG/ML) 50 ML SDV SUBCUT PRN; MIDAZOLAM 2 MG/2 ML INJ ONE; ONDANSETRON HCL INJ/PF 4 MG/2 ML SDV ONE; PROPOFOL INJ 200 MG/20 ML VIAL IV ONE
[2020-04-05] MEDS ORDERED: CEFAZOLIN 2 GM/D5W RTU 2 GM/50 ML RTUPB IV ONE (09:02)
[2020-04-05] MEDS ORDERED: LIDOCAINE 2%/EPINEPHRINE INJ 1.7 ML CARTRIDGE ONE (10:15)
[2020-04-05] MEDS ORDERED: COCAINE HCL 4% TOPICAL SOLN 4 ML ONE (10:16)
[2020-04-05] MEDS ORDERED: OXYMETAZOLINE HCL 0.05% NASAL SPRAY 15 ML BOTTLE ONE (10:16)
[2020-04-05] MEDS ORDERED: DEXAMETHASONE SOD PHOSPHATE INJ 4 MG/1 ML VIAL ONE (10:50)
[2020-04-05] MEDS ORDERED: LEVALBUTEROL HCL NEB 1.25 MG/3 ML AMPUL NEB ONE (10:58)
[2020-04-05] MEDS ORDERED: LIDOCAINE 1%/EPINEPHRINE INJ 20 ML VIAL ONE (11:02)
[2020-04-05] MEDS ORDERED: ACETAMINOPHEN 1,000 MG/100 ML RTUPB IV ONE (11:10)
[2020-04-05] MEDS ORDERED: ACETAMINOPHEN 1,000 MG/100 ML RTUPB IV PRN (11:15)
[2020-04-05] MEDS ORDERED: DIPHENHYDRAMINE HCL 50 MG/ML VIAL IV PRN (11:33)
[2020-04-05] MEDS ORDERED: FENTANYL CITRATE INJ/PF 100 MCG/2 ML AMPUL IV PRN ×2 (11:33)
[2020-04-05] MEDS ORDERED: MEPERIDINE HCL/PF INJ 25 MG/1 ML DISP.SYRIN IV PRN (11:33)
[2020-04-05] MEDS ORDERED: PROMETHAZINE HCL INJ 25 MG/1 ML VIAL IV PRN (11:33)
[2020-04-05] MEDS ORDERED: PROPOFOL INJ 200 MG/20 ML VIAL IV ONE (12:22)
[2020-04-05] MEDS ORDERED: IPRATROPIUM/ALBUTEROL 0.5-2.5 MG/3 ML AMPUL NEB ONE (12:27)
[2020-04-05] MEDS ORDERED: FLUMAZENIL INJ 0.5 MG/5 ML VIAL ONE (12:33)
[2020-04-05] MEDS ORDERED: FLUMAZENIL INJ 0.5 MG/5 ML VIAL IV ONE ×3 (12:35→13:45)
--- NOTE | 2020-04-05 12:35 | Operative Report ---
Operative Report-[facility] Operative Report: Date: 05 April 2020 History: 9-year-old female presents with a history of nasal dyspnea. Physical exam revealed a deviated nasal septum, bilateral nasal vestibular stenosis and inferior turbinate hypertrophy. Presents today for a septoplasty, repair nasal vestibular stenosis and turbinate reduction Pre-operative diagnosis: 1. Deviated nasal septum 2. Inferior turbinate hypertrophy, bilateral 3. Bilateral nasal vestibular stenosis Post operative diagnosis: same as above. Procedure: 1. Nasal septoplasty [CPT: 92823] 2. Inferior turbinate reduction, right side [CPT: 03535] 3 . Inferior turbinate reduction, left side [CPT: 98374] 4. Repair nasal vestibular stenosis, right side (CPT: 68165) 5. Repair nasal vestibular stenosis, left side (CPT: 51527) Surgeon: Anshul Palacios MD, [facility], [facility] Anesthia: GORGE Description of the procedure: After receiving informed consent, the patient was brought to the operating room and placed supine on the operating table. After successful induction and intubation by anesthesia, cottonoids soaked with 4% cocaine replaced into each nasal cavity for approximately five minutes. They were removed andthe septum along with the inferior turbinate were injected with 2% Xylocaine with 1:100,000 epinephrine. The cottonoids were replaced. The patient was then prepped and draped in a sterile fashion. The cottonoids where then removed. A number 15 blade was used to make a maricarmen transfixtion incision on the left side. Next using a Cameron and then A [place] elevator, a mucoperichondrial/mucoperiosteal flap was elevated back to the sphenoid rostrum. This was then elevated onto the nasal floor. A mucoperichondrial flap was elevated around the caudal edge of the septum and onto the right side. This exposed both sides of the cartilaginous septum. The osseocartilaginous junction was and a mucoperiosteal flap was elevated on the right side. Kowalski scissors were used to make horizontal cuts in the perpendicular plate of the ethmoid bone, superiorly and inferiorly. Valentín-Nolan forceps were used to remove this. A vo meroethmoid spur was identified and the mucosa was carefully dissected from it. A V-chisel was used to remove this spur. An inferior cartilage spur was removed using a D knife . Maxillary crest spur was removed using a V chisel. [place]kridge-Claire's were used to remove a high septal deflection in the area of the internal nasal valve. The septum was viewed with the flaps in place and found to be relatively straight. The middle turbinates were visible on both sides. The maricarmen transfixion incision was closed using 4-0 chromic and a 4-0 plain gut whip stitch was used to secure the septal flaps. Attention was then directed to the nasal valve area on the right, where the [employer] nasal airway remodeling system was used to repair the nasal vestibular stenosis. The handpiece was placed superiorly at the caudal margin of the upper lateral cartilage and the device was activated. This was repeated 2 more times marching inferiorly towards the piriform aperture. A similar procedure was done on the left. Attention was then directed to the inferior turbinates. Inferior turbinate reduction was performed using the Adjud[employer] turbinate system and the turbinate microdebrider. Intramural cauterization along with removal of submucosal tissue using the microdebrider was performed on the left inferior turbinate and then this turbinate was medialized and lateralized using a Sayer elevator. The p rocedure was done on the right side. Silicon splints coated with bacitracin were placed into each nasal cavity and secured with a 2-0 prolene. Afrin soaked cottonoids were placed into each nasal cavity and secured to each other in front of the nose. The patient was then given back to anesthesia who successfully extubated them. The patient tolerated the procedure well without any complications. Estimated blood loss: 10 mL Fluids: 800 mL The patient was transferred to the post anesthesia care unit in stable condition with spontaneous respirations.
[2020-04-05 16:13] VITALS: BP 179/86
[2020-04-05] MEDS ORDERED: ONDANSETRON HCL 8 MG TABLET PO PRN (16:28)
[2020-04-05] MEDS ORDERED: HYDROCODONE/ACETAMINOPHEN 5-325 MG TABLET PO PRN (16:28)
== END 2020-04-05 14:42 | disposition home or self-care (01) ==
LOC: OROUT 08:11
PROVIDERS: ATTEND Otolaryngology
DX: J34.2 Deviated nasal septum (principal); J34.3 Hypertrophy of nasal turbinates; H04.553 Acquired stenosis of bilateral nasolacrimal duct; J34.89 Other specified disorders of nose and nasal sinuses; J44.9 Chronic obstructive pulmonary disease, unspecified; R06.00 Dyspnea, unspecified; G47.33 Obstructive sleep apnea (adult) (pediatric); I25.10 Atherosclerotic heart disease of native coronary artery without angina pectoris; Z95.5 Presence of coronary angioplasty implant and graft; K21.9 Gastro-esophageal reflux disease without esophagitis; I10 Essential (primary) hypertension; F17.210 Nicotine dependence, cigarettes, uncomplicated; E78.5 Hyperlipidemia, unspecified; E66.01 Morbid (severe) obesity due to excess calories; I25.2 Old myocardial infarction; Z85.43 Personal history of malignant neoplasm of ovary; Z79.899 Other long term (current) drug therapy; Z79.82 Long term (current) use of aspirin; Z03.818 Encounter for observation for suspected exposure to other biological agents ruled out; Z86.718 Personal history of other venous thrombosis and embolism; Z99.81 Dependence on supplemental oxygen; Z92.21 Personal history of antineoplastic chemotherapy
CPT/HCPCS: 93005; 36415; 85025; 80048; 71046; 93010; 00160; 30520; 30140; 30465; U0003; J3490 ×3; J2250; C9046; J1100; J1170; A9270 ×2; J2405; J2704; J0690; J0131; C9803; 160; 87635; J3010; J7614